=== PATIENT | male | born 1970 | race American Indian/Alaskan Native ===

== ENCOUNTER 2016-12-10 20:16 | Emergency (ER) | payer BC, MEDICAID ==
[2016-12-10] MEDS ORDERED: HYDROmorphone 1 MG/ML Syringe IVPUSH ONE ×2 (21:00→21:53)
[2016-12-10] MEDS ORDERED: Ondansetron 4 MG/2 ML SDV IV ONE (21:00)
[2016-12-10] MEDS ORDERED: HYDROmorphone 1 MG/ML Syringe ONE (21:18)
[2016-12-10] MEDS ORDERED: LORazepam 2 MG/ML Syringe IVPUSH ONE (21:45)
[2016-12-10 22:09] LABS: CHLORIDE,CL 102 mmol/L (101-111); SODIUM,NA 137 mmol/L (135-145)
[2016-12-10] MEDS ORDERED: fentaNYL 100 MCG/2 ML SDV IVPUSH ONE (22:26)
[2016-12-10 23:03] VITALS: BP 96/63
--- NOTE | 2016-12-26 05:55 | EDM.PDOC ---
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 Hx back problems different tonight with numbness to lower legs and cant feel area of groin. No incontinence. Has to strain to urinate. Onset: Today Duration: Hour(s):, Getting Worse Lower Back Pain Score (Numeric/FACES): 7 - Related Data Allergies Allergy/AdvReac Type Severity Reaction Status Date / Time codeine Allergy Rash Verified 12/17/16 09:19 Home Meds: Home Meds Cyclobenzaprine [Flexeril] 1 tab PO TID PRN 12/17/16 [History] Oxycod/Apap 12/17/16 [History] Past Medical History - Infectious Disease History Infectious Disease History: Reports: Chicken Pox, Measles, Mumps - Past Surgical History GI Surgical History: Reports: Cholecystectomy Neurological Surgical History: Reports: Discectomy Other Neurological Surgeries/Procedures: L4-L5 Musculoskeletal Surgical History: Reports: Shoulder Surgery, Other (See Below) Other Musculoskeletal Surgeries/Procedures:: l4-l5 Social & Family History - Tobacco Use Smoking Status *Q: Current Every Day Smoker Years of Tobacco use: 32 Packs/Tins Daily: 1 Second Hand Smoke Exposure: Yes - Recreational Drug Use Recreational Drug Use: No ED ROS GENERAL - Review of Systems Review Of Systems: See Below Constitutional: Denies: Fever, Chills HEENT: Reports: No Symptoms Respiratory: Reports: No Symptoms Cardiovascular: Reports: No Symptoms GI/Abdominal: Reports: Nausea : Reports: No Symptoms Musculoskeletal: Reports: Back Pain Skin: Reports: No Symptoms Neurological: Reports: Paresthesia, Difficulty Walking ED EXAM,LOWER BACK PAIN/INJURY - Physical Exam Exam: See Below General Appearance: Alert, Anxious, Severe Distress Eye Exam: Bilateral Eye: EOMI Ears: Normal External Exam Throat/Mouth: Normal Inspection Head: Atraumatic, Normocephalic Neck: Normal Inspection Respiratory/Chest: No Respiratory Distress, Lungs Clear Cardiovascular: Regular Rate, Rhythm, Tachycardia GI/Abdominal: Normal Bowel Sounds, Soft Rectal (Males) Exam: No: Decreased Rectal Tone Back Exam: Paraspinal Tenderness, Vertebral Tenderness, Other (decreased sensation right foot. saddle anesthesia, position of comfort position.) Extremities: Limited Range of Motion Neurological: Alert, No Response to Pain (decreased response bilateral ), Saddle Anesthesia. No: Normal Gait Psychiatric: Anxious Skin Exam: Warm, Dry, Intact, Normal Color Course - Vital Signs Last Recorded V/S: Last Vital Signs Temp 99.2 F 12/10/16 22:29 Pulse 113 H 12/10/16 23:00 Resp 18 12/10/16 22:29 BP 96/63 12/10/16 23:00 Pulse Ox 96 12/10/16 23:00 - Orders/Labs/Meds Labs: Laboratory Tests 12/10/16 12/10/16 12/10/16 Range/Units 20:52 20:52 22:47 WBC 18.1 H (5.0-10.0) 10^3/uL RBC 4.82 (4.6-6.2) 10^6/uL Hgb 15.2 (14.0-18.0) g/dL Hct 44.2 (40.0-54.0) % MCV 91.7 (80-100) fL MCH 31.5 (27.0-34.0) pg MCHC 34.4 (33.0-35.0) g/dL Plt Count 262 (150-450) 10^3/uL Neut % (Auto) 83.7 H (42.2-75.2) % Lymph % (Auto) 7.4 L (20.5-50.1) % [place] % (Auto) 8.4 H (2-8) % Eos % (Auto) 0.3 L (1.0-3.0) % Baso % (Auto) 0.2 (0.0-1.0) % Sodium 137 (135-145) mmol/L Potassium 3.5 L (3.6-5.0) mmol/L Chloride 102 (101-111) mmol/L Carbon Dioxide 19.0 L (21.0-31.0) mmol/L Anion Gap 19.5 BUN 15 (7-18) mg/dL Creatinine 1.1 (0.6-1.3) mg/dL Est Cr Clr Drug Dosing 79.45 mL/min Estimated GFR (MDRD) > 60 BUN/Creatinine Ratio 13.63 Glucose 88 (74-105) mg/dL Calcium 9.5 (8.4-10.2) mg/dl Total Bilirubin 0.9 (0.2-1.0) mg/dL AST 39 (10-42) IU/L ALT 46 (10-60) IU/L Alkaline Phosphatase 76 (42-121) IU/L Total Protein 8.4 H (6.7-8.2) g/dl Albumin 4.3 (3.2-5.5) g/dl Globulin 4.1 Albumin/Globulin Ratio 1.05 Urine Color Dark yellow (YELLOW) Urine Appearance Slightly cloudy (CLEAR) Urine pH 6.0 (5.0-9.0) Ur Specific [place] 1.020 (1.005-1.030) Urine Protein 30 H (NEGATIVE) Urine Glucose (UA) Negative (NEGATIVE) Urine Ketones Trace H (NEGATIVE) Urine Occult Blood Negative (NEGATIVE) Urine Nitrite Negative (NEGATIVE) Urine Bilirubin Small H (NEGATIVE) Urine Urobilinogen 2.0 H (0.2-1.0) mg/dL Ur Leukocyte Esterase Negative (NEGATIVE) Urine RBC 0-5 /HPF Urine WBC 0-5 (0-5/HPF) /HPF Ur Epithelial Cells Occasional /HPF Urine Bacteria Moderate H (0-FEW/HPF) /HPF Urine Mucus Many H /LPF Meds: Medications Discontinued Medications Generic Name Dose Route Start Last Admin Trade Name Gadiel PRN Reason Stop Dose Admin Diazepam 2.5 mg 12/10/16 22:41 12/10/16 22:56 Valium IVPUSH 12/10/16 22:42 2.5 mg ONETIME ONE Administration Fentanyl 25 mcg 12/10/16 22:26 12/10/16 22:55 Sublimaze IVPUSH 12/10/16 22:27 25 mcg ONETIME ONE Administration Hydromorphone HCl 1 mg 12/10/16 21:00 12/10/16 21:06 Dilaudid IVPUSH 12/10/16 21:01 1 mg ONETIME ONE Administration Hydromorphone HCl Confirm 12/10/16 21:18 12/10/16 21:20 Dilaudid Administered 12/10/16 21:19 1 mg Dose Administration 1 mg .ROUTE .STK-MED ONE Hydromorphone HCl 1 mg 12/10/16 21:53 12/10/16 21:55 Dilaudid IVPUSH 12/10/16 21:54 Not Given ONETIME ONE Lorazepam 1 mg 12/10/16 21:45 12/10/16 22:02 Ativan IVPUSH 12/10/16 21:46 1 mg ONETIME ONE Administration Ondansetron HCl 4 mg 12/10/16 21:00 12/10/16 21:08 Zofran IV 12/10/16 21:01 4 mg ONETIME ONE Administration - Radiology Interpretation Free Text/Narrative:: Lumbar CT no acute findings - Re-Assessments/Exams Free Text/Narrative Re-Assessment/Exam: 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 Tx via ambulance Departure - Departure Time of Disposition: 23:45 Disposition: DC/Tfer to Acute Hospital 02 Condition: Undetermined Clinical Impression: Lumbar radiculopathy, acute Acute low back pain Qualifiers: Back pain laterality: right Sciatica presence: with sciatica Sciatica laterality: sciatica of right side Qualified Code(s): M54.41 - Lumbago with sciatica, right side - Discharge Information Referrals: PCP,Unobtain [Primary Care Provider] - Forms: ED Department Discharge
== END 2016-12-10 23:45 ==
LOC: DL.ED 20:16
DX: M54.16 Radiculopathy, lumbar region (principal); M54.41 Lumbago with sciatica, right side; F17.210 Nicotine dependence, cigarettes, uncomplicated; Z88.5 Allergy status to narcotic agent; Z90.49 Acquired absence of other specified parts of digestive tract
CPT/HCPCS: 36415; 72131; 80053; 81001; 85025; 96374; 96375; 99284; J1170; J2060; J2405; J3010; J3360

== ENCOUNTER 2016-12-17 08:45 | Emergency (ER) | payer BC ==
--- NOTE | 2016-12-17 09:00 | EDM.PDOC ---
ED HPI GENERAL MEDICAL PROBLEM - General Chief Complaint: Back Pain or Injury Stated Complaint: BACK Time Seen by Provider: 12/17/16 09:00 Source of Information: Reports: Patient, RN History Limitations: Reports: No Limitations - History of Present Illness INITIAL COMMENTS - FREE TEXT/NARRATIVE: Arrives from home by POV with c/o low back pain radiating to the Rt groin and down the Rt leg. Pt was seen here on 12/10/16 and transferred to a neurosurgeon at [facility] after lifting and injuring his low back and having loss of sensation to the Rt leg with saddle numbness. Pt is scheduled to see the neurosurgeon in clinic on 12/26/16 for f/u. Today he went to clinic for recheck and refill of his pain medication, but he states they would not let him see Dr. Acuna and told him to go to the ER for his medicine. 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) Right Lower Back Pain Score (Numeric/FACES): 9 - Related Data Allergies Allergy/AdvReac Type Severity Reaction Status Date / Time codeine Allergy Rash Verified 12/17/16 09:19 Home Meds: Home Meds Oxycod/Apap 12/17/16 [History] Past Medical History - Infectious Disease History Infectious Disease History: Reports: Chicken Pox, Measles, Mumps - Past Surgical History GI Surgical History: Reports: Cholecystectomy Neurological Surgical History: Reports: Discectomy Other Neurological Surgeries/Procedures: L4-L5 Musculoskeletal Surgical History: Reports: Shoulder Surgery, Other (See Below) Other Musculoskeletal Surgeries/Procedures:: l4-l5 Social & Family History - Family History Family Medical History: Noncontributory - Tobacco Use Smoking Status *Q: Current Every Day Smoker Years of Tobacco use: 32 Packs/Tins Daily: 1 Second Hand Smoke Exposure: Yes - Recreational Drug Use Recreational Drug Use: No - Living Situation & Occupation Living situation: Reports: with Family ED ROS GENERAL - Review of Systems Review Of Systems: ROS reveals no pertinent complaints other than HPI. ED EXAM,LOWER BACK PAIN/INJURY - Physical Exam Exam: See Below Exam Limited By: No Limitations General Appearance: Alert, WD/WN, No Apparent Distress Head: Atraumatic, Normocephalic Neck: Normal Inspection, Supple, Non-Tender, Full Range of Motion Respiratory/Chest: No Respiratory Distress, Lungs Clear, Normal Breath Sounds, No Accessory Muscle Use, Chest Non-Tender Cardiovascular: Regular Rate, Rhythm GI/Abdominal: Normal Bowel Sounds, Soft, Non-Tender, No Organomegaly, No Distention, No Abnormal Bruit (Male) Exam: Deferred Rectal (Males) Exam: Deferred Back Exam: Decreased Range of Motion (lumbar), Muscle Spasm, Paraspinal Tenderness (lumbar). No: CVA Tenderness (L), CVA Tenderness (R), Vertebral Tenderness Extremities: Normal Inspection, Normal Range of Motion, Non-Tender, No Pedal Edema, Normal Capillary Refill Neurological: Alert, Normal Mood/Affect, Normal Dorsiflexion, CN II-XII Intact, Normal Plantar Flexion, No Motor/Sensory Deficits, Oriented x 3, Abnormal Gait ( antalgic gait due to back pain) Psychiatric: Normal Affect, Normal Mood Skin Exam: Warm, Dry, Intact, Normal Color, No Rash Course - Vital Signs Last Recorded V/S: Last Vital Signs Temp 36.8 C 12/17/16 08:53 Pulse 92 12/17/16 08:53 Resp 20 12/17/16 08:53 BP 145/88 H 12/17/16 08:53 Pulse Ox 100 12/17/16 08:53 - Orders/Labs/Meds Meds: Medications Discontinued Medications Generic Name Dose Route Start Last Admin Trade Name Gadiel PRN Reason Stop Dose Admin Dexamethasone 8 mg 12/17/16 09:14 Dexamethasone PO 12/17/16 09:15 ONETIME ONE Oxycodone/Acetaminophen 2 tab 12/17/16 09:15 Percocet 325-5 Mg PO 12/17/16 09:16 ONETIME ONE - Re-Assessments/Exams Free Text/Narrative Re-Assessment/Exam: 12/17/16 09:40 Reviewed D[place]C notes from [place] and [place] report from visit here on 12/10/16. Departure - Departure Time of Disposition: 09:17 Disposition: Home, Self-Care 01 Condition: Good Clinical Impression: Lumbar radiculopathy, acute Acute low back pain Qualifiers: Back pain laterality: right Sciatica presence: with sciatica Sciatica laterality: sciatica of right side Qualified Code(s): M54.41 - Lumbago with sciatica, right side - Discharge Information Instructions: Back Pain, Adult, [id number], Lumbosacral Radiculopathy Forms: ED Department Discharge Additional Instructions: Rx: Decadron (Dexamethasone) 4mg Rx: Gabapentin 300mg *Do not drive while under the influence of this medication. Follow up Saturday with Dr. Acuna for recheck, medication management, and a referral to neurosurgeon.
[2016-12-17] MEDS ORDERED: Dexamethasone 4 MG Tab PO ONE (09:14)
[2016-12-17] MEDS ORDERED: Acetaminophen/oxyCODONE 325-5 MG Tab PO ONE (09:15)
[2016-12-17 09:17] VITALS: BP 145/88
== END 2016-12-17 09:40 | disposition home or self-care (01) ==
LOC: DL.ED 08:45
DX: M54.16 Radiculopathy, lumbar region (principal); M54.41 Lumbago with sciatica, right side; F17.210 Nicotine dependence, cigarettes, uncomplicated; Z98.890 Other specified postprocedural states
CPT/HCPCS: 99282; A9270; J8540

== ENCOUNTER 2018-10-24 03:56 | Emergency (ER) | payer BC, MEDICAID ==
[2018-10-24 04:06] VITALS: BP 113/63; PULSE 84
[2018-10-24] MEDS ORDERED: Ketorolac 30 MG/ML SDV IVPUSH ONE (04:18)
--- NOTE | 2018-10-24 04:46 | EDM.PDOC ---
ED HPI GENERAL MEDICAL PROBLEM - General Chief Complaint: Back Pain or Injury Stated Complaint: AMBULANCE- BACK PAIN Time Seen by Provider: 10/24/18 04:05 Source of Information: Reports: Patient, EMS History Limitations: Reports: Other - History of Present Illness INITIAL COMMENTS - FREE TEXT/NARRATIVE: Jas via [facility] with c/o low back pain after "falling in hallway around 2. Stated he "was trying to sit down on his couch" Hx of back pain and previous L4L5 surgeries. Poor historian. C/O and hx inconsistent. Patient had told EMS that after he fell he got up and smoked some weed In ED denied drug or alcohol use. Able to get from hallway where fell to living room per self. Lower Back Pain Score (Numeric/FACES): 10 - Related Data Allergies Allergy/AdvReac Type Severity Reaction Status Date / Time codeine Allergy Rash Verified 12/17/16 09:19 Home Meds: Home Meds . [No Known Home Meds] 10/24/18 [History] Past Medical History Musculoskeletal History: Reports: Back Pain, Chronic - Infectious Disease History Infectious Disease History: Reports: Chicken Pox, Measles, Mumps - Past Surgical History GI Surgical History: Reports: Cholecystectomy Neurological Surgical History: Reports: Discectomy Other Neurological Surgeries/Procedures: L4-L5 Musculoskeletal Surgical History: Reports: Shoulder Surgery, Other (See Below) Other Musculoskeletal Surgeries/Procedures:: l4-l5 Social & Family History - Family History Family Medical History: Noncontributory - Tobacco Use Smoking Status *Q: Current Every Day Smoker Years of Tobacco use: 24 Packs/Tins Daily: 0.7 Used Tobacco, but Quit: No Second Hand Smoke Exposure: Yes - Caffeine Use Caffeine Use: Reports: Soda - Recreational Drug Use Recreational Drug Use: No - Living Situation & Occupation Living situation: Reports: with Family ED ROS GENERAL - Review of Systems Review Of Systems: ROS reveals no pertinent complaints other than HPI. ED EXAM,LOWER BACK PAIN/INJURY - Physical Exam Exam: See Below Exam Limited By: No Limitations General Appearance: Alert, Anxious Eye Exam: Bilateral Eye: EOMI, PERRL (5mm) Ears: Normal External Exam Throat/Mouth: Normal Inspection Head: Atraumatic, Normocephalic Respiratory/Chest: No Respiratory Distress, Lungs Clear, Normal Breath Sounds Cardiovascular: Normal Peripheral Pulses, Regular Rate, Rhythm GI/Abdominal: Normal Bowel Sounds Back Exam: Full Range of Motion, Paraspinal Tenderness (low lumbar) Extremities: Normal Inspection, Normal Range of Motion Neurological: Alert, Straight Leg Raise (R), Other (forgetful, frequent redirection, crawling out of bed, wandering in room, picking at lausndry and supplies on wall.). No: Saddle Anesthesia Psychiatric: Anxious Skin Exam: Warm, Dry, Intact, Normal Color Course - Vital Signs Last Recorded V/S: Last Vital Signs Temp 97.9 F 10/24/18 04:04 Pulse 84 10/24/18 04:04 Resp 20 10/24/18 04:04 BP 113/63 10/24/18 04:04 Pulse Ox 97 10/24/18 04:04 - Orders/Labs/Meds Orders: Active Orders 24 hr Category Date Time Status Head wo Cont [CT] Urgent Exams 10/24/18 05:13 Taken Lumbar Spine wo Cont [CT] Urgent Exams 10/24/18 05:14 Taken Labs: Laboratory Tests 10/24/18 10/24/18 10/24/18 Range/Units 04:30 04:30 05:08 WBC 7.3 (5.0-10.0) 10^3/uL RBC 4.76 (4.6-6.2) 10^6/uL Hgb 14.7 (14.0-18.0) g/dL Hct 42.6 (40.0-54.0) % MCV 89.5 (80-100) fL MCH 30.9 (27.0-34.0) pg MCHC 34.5 (33.0-35.0) g/dL Plt Count 255 (150-450) 10^3/uL Neut % (Auto) 48.0 (42.2-75.2) % Lymph % (Auto) 39.9 (20.5-50.1) % [place] % (Auto) 10.3 H (2-8) % Eos % (Auto) 1.4 (1.0-3.0) % Baso % (Auto) 0.4 (0.0-1.0) % Sodium 137 (135-145) mmol/L Potassium 4.1 (3.6-5.0) mmol/L Chloride 107 (101-111) mmol/L Carbon Dioxide 21.0 (21.0-31.0) mmol/L Anion Gap 13.1 BUN 14 (7-18) mg/dL Creatinine 0.9 (0.6-1.3) mg/dL Est Cr Clr Drug Dosing 95.00 mL/min Estimated GFR (MDRD) > 60 BUN/Creatinine Ratio 15.55 Glucose 88 (74-105) mg/dL Calcium 9.2 (8.4-10.2) mg/dl Total Bilirubin 0.8 (0.2-1.0) mg/dL AST 29 (10-42) IU/L ALT 33 (10-60) IU/L Alkaline Phosphatase 76 (42-121) IU/L Total Protein 7.7 (6.7-8.2) g/dl Albumin 4.0 (3.2-5.5) g/dl Globulin 3.7 Albumin/Globulin Ratio 1.08 Urine Color Yellow (YELLOW) Urine Appearance Clear (CLEAR) Urine pH 7.0 (5.0-9.0) Ur Specific [place] 1.010 (1.005-1.030) Urine Protein Negative (NEGATIVE) Urine Glucose (UA) Negative (NEGATIVE) Urine Ketones Negative (NEGATIVE) Urine Occult Blood Trace-intact H (NEGATIVE) Urine Nitrite Negative (NEGATIVE) Urine Bilirubin Negative (NEGATIVE) Urine Urobilinogen 4.0 H (0.2-1.0) mg/dL Ur Leukocyte Esterase Negative (NEGATIVE) Urine RBC 0-5 /HPF Urine WBC 0-5 (0-5/HPF) /HPF Ur Epithelial Cells Rare (NOT SEEN) /HPF Urine Bacteria Rare (0-FEW/HPF) /HPF Urine Opiates Screen (NEGATIVE) Ur Oxycodone Screen (NEGATIVE) Urine Methadone Screen (NEGATIVE) Ur Barbiturates Screen (NEGATIVE) U Tricyclic Antidepress (NEGATIVE) Ur Phencyclidine Scrn (NEGATIVE) Ur Amphetamine Screen (NEGATIVE) U Methamphetamines Scrn (NEGATIVE) Urine MDMA Screen (NEGATIVE) U Benzodiazepines Scrn (NEGATIVE) Urine Cocaine Screen (NEGATIVE) U Marijuana (THC) Screen (NEGATIVE) Ethyl Alcohol < 5 mg/dL 10/24/18 Range/Units 05:08 WBC (5.0-10.0) 10^3/uL RBC (4.6-6.2) 10^6/uL Hgb (14.0-18.0) g/dL Hct (40.0-54.0) % MCV (80-100) fL MCH (27.0-34.0) pg MCHC (33.0-35.0) g/dL Plt Count (150-450) 10^3/uL Neut % (Auto) (42.2-75.2) % Lymph % (Auto) (20.5-50.1) % [place] % (Auto) (2-8) % Eos % (Auto) (1.0-3.0) % Baso % (Auto) (0.0-1.0) % Sodium (135-145) mmol/L Potassium (3.6-5.0) mmol/L Chloride (101-111) mmol/L Carbon Dioxide (21.0-31.0) mmol/L Anion Gap BUN (7-18) mg/dL Creatinine (0.6-1.3) mg/dL Est Cr Clr Drug Dosing mL/min Estimated GFR (MDRD) BUN/Creatinine Ratio Glucose (74-105) mg/dL Calcium (8.4-10.2) mg/dl Total Bilirubin (0.2-1.0) mg/dL AST (10-42) IU/L ALT (10-60) IU/L Alkaline Phosphatase (42-121) IU/L Total Protein (6.7-8.2) g/dl Albumin (3.2-5.5) g/dl Globulin Albumin/Globulin Ratio Urine Color (YELLOW) Urine Appearance (CLEAR) Urine pH (5.0-9.0) Ur Specific [place] (1.005-1.030) Urine Protein (NEGATIVE) Urine Glucose (UA) (NEGATIVE) Urine Ketones (NEGATIVE) Urine Occult Blood (NEGATIVE) Urine Nitrite (NEGATIVE) Urine Bilirubin (NEGATIVE) Urine Urobilinogen (0.2-1.0) mg/dL Ur Leukocyte Esterase (NEGATIVE) Urine RBC /HPF Urine WBC (0-5/HPF) /HPF Ur Epithelial Cells (NOT SEEN) /HPF Urine Bacteria (0-FEW/HPF) /HPF Urine Opiates Screen Negative (NEGATIVE) Ur Oxycodone Screen Positive H (NEGATIVE) Urine Methadone Screen Negative (NEGATIVE) Ur Barbiturates Screen Negative (NEGATIVE) U Tricyclic Antidepress Negative (NEGATIVE) Ur Phencyclidine Scrn Negative (NEGATIVE) Ur Amphetamine Screen Positive H (NEGATIVE) U Methamphetamines Scrn Positive H (NEGATIVE) Urine MDMA Screen Negative (NEGATIVE) U Benzodiazepines Scrn Positive H (NEGATIVE) Urine Cocaine Screen Negative (NEGATIVE) U Marijuana (THC) Screen Positive H (NEGATIVE) Ethyl Alcohol mg/dL Meds: Medications Discontinued Medications Generic Name Dose Route Start Last Admin Trade Name Gadiel PRN Reason Stop Dose Admin Ketorolac Tromethamine 30 mg 10/24/18 04:18 10/24/18 04:25 Toradol IVPUSH 10/24/18 04:19 30 mg ONETIME ONE Administration Orphenadrine Citrate 60 mg 10/24/18 04:19 10/24/18 04:27 Norflex IM 10/24/18 04:20 60 mg ONETIME ONE Administration - Re-Assessments/Exams Free Text/Narrative Re-Assessment/Exam: Informed results of urine drug screen, first admitting and stating it had been 3 -4 days since use then that he was "exposed to chemicals at work" Departure - Departure Time of Disposition: 06:39 Disposition: Eloped 07 Condition: Good Clinical Impression: Positive urine drug screen Back pain Qualifiers: Back pain location: low back pain Chronicity: acute Back pain laterality: unspecified Sciatica presence: without sciatica Qualified Code(s): M54.5 - Low back pain - Discharge Information *PRESCRIPTION DRUG MONITORING PROGRAM REVIEWED*: Yes *COPY OF PRESCRIPTION DRUG MONITORING REPORT IN PATIENT [place]: No Instructions: Musculoskeletal Pain, Stimulant Use Disorder-Methamphetamines Forms: ED Department Discharge - My Orders Last 24 Hours: My Active Orders 10/24/18 05:13 Head wo Cont [CT] Urgent 10/24/18 05:14 Lumbar Spine wo Cont [CT] Urgent - Assessment/Plan Last 24 Hours: My Active Orders 10/24/18 05:13 Head wo Cont [CT] Urgent 10/24/18 05:14 Lumbar Spine wo Cont [CT] Urgent
[2018-10-24 04:53] LABS: ANION GAP 13.1; CHLORIDE,CL 107 mmol/L (101-111); SODIUM,NA 137 mmol/L (135-145)
== END 2018-10-24 06:30 | disposition left against medical advice (07) ==
LOC: DL.ED 03:56
DX: M54.5 Low back pain (principal); R82.5 Elevated urine levels of drugs, medicaments and biological substances; F17.210 Nicotine dependence, cigarettes, uncomplicated; Z90.49 Acquired absence of other specified parts of digestive tract
CPT/HCPCS: 36415; 70450; 72131; 80053; 80305; 81001; 85025; 96372; 96374; 99283; G0480; J1885; J2360

== ENCOUNTER 2020-01-16 11:15 | Emergency (ER) | payer MEDICAID ==
[2020-01-16] MEDS ORDERED: Iopamidol 612 MG/ML 100 ML Bottle IV ONE (11:16)
[2020-01-16 11:26] VITALS: BP 135/84; PULSE 100
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
[2020-01-16 12:09] LABS: ANION GAP 7.9 mEq/L (7-13); CHLORIDE,CL 98 mmol/L (98-107); SODIUM,NA 135 mmol/L (136-145)
--- NOTE | 2020-01-16 12:21 | CT ---
PROCEDURE INFORMATION: Exam: CT Lumbar Spine Without Contrast Exam date and time: 01/16/2020 11:46 AM Age: 50 years old Clinical indication: Low back pain; Prior surgery; Surgery date: 6+ months; Additional info: Lower right back pain, possible hematoma TECHNIQUE: Imaging protocol: Computed tomography images of the lumbar spine without contrast. Radiation optimization: All CT scans at this facility use at least one of these dose optimization techniques: automated exposure control; mA and/or kV adjustment per patient size (includes targeted exams where dose is matched to clinical indication); or iterative reconstruction. COMPARISON: CT Lumbar Spine wo Cont 10/24/2018 5:44 AM FINDINGS: Vertebrae: L3-S1 posterior fusion and decompression with intervening disc spacers. Intact hardware. No vertebral body compression. Normal vertebral body alignment. Discs/Spinal canal/Neural foramina: Degenerative disc space narrowing at L3-S1 levels. Moderate disc osteophyte complexes at L4-L5 and L5-S1. Bilateral neural foraminal narrowing at L5-S1. Facet arthrosis at L2-L3, L3-L4, L4-L5 and L5-S1. No spinal canal stenosis. Moderate bulge at L3-L4. Vasculature: Atherosclerosis. Soft tissues: Cholecystectomy. IMPRESSION: Intact hardware. Degenerative changes. No hematoma identified.
--- NOTE | 2020-01-16 12:24 | CT ---
PROCEDURE INFORMATION: Exam: CT Abdomen And Pelvis With Contrast Exam date and time: 01/16/2020 11:56 AM Age: 50 years old Clinical indication: Abdominal pain; Additional info: Lower right back pain, possible hematoma TECHNIQUE: Imaging protocol: Computed tomography of the abdomen and pelvis with intravenous contrast. Radiation optimization: All CT scans at this facility use at least one of these dose optimization techniques: automated exposure control; mA and/or kV adjustment per patient size (includes targeted exams where dose is matched to clinical indication); or iterative reconstruction. Contrast material: ISOVUE; Contrast volume: 100 ml; Contrast route: INTRAVENOUS (IV); COMPARISON: No relevant prior studies available. FINDINGS: Liver: Normal. No mass. Gallbladder and bile ducts: Cholecystectomy. Pancreas: Normal. No ductal dilation. Spleen: Normal. No splenomegaly. Adrenals: Normal. No mass. Kidneys and ureters: 6 mm nonobstructive left renal stone. Mild heterogeneity in the enhancement of the right renal cortex. Correlate with urinalysis to exclude pyelonephritis. 1 mm nonobstructive right renal stone. Stomach and bowel: Unremarkable. No obstruction. No mucosal thickening. Appendix: Unable to identify the appendix. Intraperitoneal space: Small amount of pelvic ascites. Vasculature: Atherosclerosis. Lymph nodes: Unremarkable. No enlarged lymph nodes. Bladder: Unremarkable as visualized. Reproductive: Unremarkable as visualized. Bones/joints: Lumbosacral fusion. Soft tissues: Unremarkable. IMPRESSION: 6 mm nonobstructive left renal stone. Mild heterogeneity in the enhancement of the right renal cortex. Correlate with urinalysis to exclude pyelonephritis. Small amount of pelvic ascites. 1 mm nonobstructive right renal stone.
== END 2020-01-16 12:13 | disposition left against medical advice (07) ==
LOC: DL.ED 11:15
DX: M54.5 Low back pain (principal); I10 Essential (primary) hypertension; F17.210 Nicotine dependence, cigarettes, uncomplicated; Z88.5 Allergy status to narcotic agent; Z88.8 Allergy status to other drugs, medicaments and biological substances; Z79.899 Other long term (current) drug therapy
CPT/HCPCS: 36415; 72131; 74177; 80053; 85025; 99284-25

== ENCOUNTER 2020-01-17 06:01 | Emergency (ER) | payer MEDICAID ==
[2020-01-17 06:01] VITALS: BP 180/124; PULSE 113
[2020-01-17] MEDS ORDERED: Tamsulosin 0.4 MG Cap.ER PO ONE (06:02)
[2020-01-17] MEDS ORDERED: Ketorolac 30 MG/ML SDV IM ONE (06:02)
[2020-01-17] MEDS ORDERED: Acetaminophen/HYDROcodone 325-5 MG Tab PO ONE (06:03)
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
[2020-01-17] MEDS ORDERED: Sodium Chloride 0.9% 10 ML Syringe FLUSH PRN (06:33)
[2020-01-17] MEDS ORDERED: Sodium Chloride 0.9% 1,000 ML IV ONE (06:34)
[2020-01-17] MEDS ORDERED: diphenhydrAMINE 50 MG/ML SDV IVPUSH ONE (07:06)
[2020-01-17 07:14] LABS: ANION GAP 13.3 mEq/L (7-13); CHLORIDE,CL 98 mmol/L (98-107); SODIUM,NA 133 mmol/L (136-145)
== END 2020-01-17 08:12 ==
LOC: DL.ED 06:01
DX: S70.11XA Contusion of right thigh, initial encounter (principal); S30.0XXA Contusion of lower back and pelvis, initial encounter; L02.212 Cutaneous abscess of back [any part, except buttock and flank]; N20.0 Calculus of kidney; I10 Essential (primary) hypertension; F17.210 Nicotine dependence, cigarettes, uncomplicated; Z88.5 Allergy status to narcotic agent; Z88.8 Allergy status to other drugs, medicaments and biological substances; Z79.899 Other long term (current) drug therapy; W22.8XXA Striking against or struck by other objects, initial encounter
CPT/HCPCS: 36415; 80053; 80305; 81001; 83605; 85025; 86140; 87040; 96361; 96365; 96372; 96375; 99285; A9270; J1200; J1885; J3370; J7030; J7050; 87077; 87186

== ENCOUNTER 2020-02-21 17:18 | Emergency (ER) | payer MEDICAID | END 2020-02-21 18:00 | LOC: DL.ED 17:18 | DX: Z53.21 Procedure and treatment not carried out due to patient leaving prior to being seen by health care provider (principal) ==

== ENCOUNTER 2020-02-22 00:43 | Emergency (ER) | payer MEDICAID ==
[2020-02-22 00:54] VITALS: BP 122/64; PULSE 106
[2020-02-22] MEDS ORDERED: HYDROmorphone 1 MG/ML Syringe IVPUSH ONE ×2 (01:17→02:29)
[2020-02-22] MEDS ORDERED: Ondansetron 4 MG/2 ML SDV IVPUSH ONE (01:17)
[2020-02-22 01:40] LABS: ANION GAP 15.5 mEq/L (7-13); CHLORIDE,CL 103 mmol/L (98-107); SODIUM,NA 141 mmol/L (136-145)
--- NOTE | 2020-02-22 01:42 | EDM.PDOC ---
ED HPI GENERAL MEDICAL PROBLEM - General Chief Complaint: Back Pain or Injury Stated Complaint: SEVERE BACK PAIN CAN'T FEEL LEGS Time Seen by Provider: 02/22/20 00:50 Source of Information: Reports: Patient History Limitations: Reports: No Limitations - History of Present Illness INITIAL COMMENTS - FREE TEXT/NARRATIVE: ED with c/o severe low back pain, Hx lumbar lisa and pins in 2014. Chronic pain since. States feel on to butt today and pain worse with numbness bilateral lower legs below knees. Difficulty with urination no incontinence. No stool incontinence. Admits narcotic Rx stopped by PCP due to positive meth. Admits last use 2 weeks ago. Denied IV use. No fever or chills. Took one hydro tonight around 6. Taking ibvuprofen 400mg every 4-6 hours. Lower Back Pain Score (Numeric/FACES): 10 - Related Data Allergies Allergy/AdvReac Type Severity Reaction Status Date / Time codeine Allergy Rash Verified 02/22/20 00:49 cyclobenzaprine Allergy Rash Verified 02/22/20 00:49 Home Meds: Home Meds lisinopriL [Lisinopril] 10 mg PO DAILY 01/16/20 [History] Past Medical History HEENT History: Reports: None Cardiovascular History: Reports: Hypertension Respiratory History: Reports: None Genitourinary History: Reports: None Musculoskeletal History: Reports: Back Pain, Chronic Neurological History: Reports: None Psychiatric History: Reports: None Endocrine/Metabolic History: Reports: None Hematologic History: Reports: None Immunologic History: Reports: None Oncologic (Cancer) History: Reports: None Dermatologic History: Reports: None - Infectious Disease History Infectious Disease History: Reports: None - Past Surgical History Head Surgeries/Procedures: Reports: None GI Surgical History: Reports: Cholecystectomy Neurological Surgical History: Reports: Discectomy Other Neurological Surgeries/Procedures: L4-L5 Musculoskeletal Surgical History: Reports: Shoulder Surgery, Other (See Below) Other Musculoskeletal Surgeries/Procedures:: l4-l5. States he has "rods and pins in back from ruptured disc" Social & Family History - Family History Family Medical History: Noncontributory - Tobacco Use Smoking Status *Q: Current Every Day Smoker Years of Tobacco use: 40 Packs/Tins Daily: 0.5 - Caffeine Use Caffeine Use: Reports: Soda - Recreational Drug Use Recreational Drug Use: No - Living Situation & Occupation Living situation: Reports: with Family ED ROS GENERAL - Review of Systems Review Of Systems: Comprehensive ROS is negative, except as noted in HPI. ED EXAM,LOWER BACK PAIN/INJURY - Physical Exam Exam: See Below Exam Limited By: No Limitations General Appearance: Alert, Moderate Distress Eye Exam: Bilateral Eye: EOMI Ears: Normal External Exam, Hearing Grossly Normal Nose: Normal Inspection Throat/Mouth: Normal Inspection Head: Atraumatic, Normocephalic Neck: Normal Inspection Respiratory/Chest: No Respiratory Distress, Lungs Clear, Normal Breath Sounds Cardiovascular: Normal Peripheral Pulses, Regular Rate, Rhythm GI/Abdominal: Normal Bowel Sounds, Soft Back Exam: Paraspinal Tenderness. No: Vertebral Tenderness Neurological: Extensor Response to Pain, Flexor Response to Pain, Abnormal Sensation (decreased below knees bilateral), Abn 2 Pt Discrimination, Straight Leg Raise (L), Straight Leg Raise (R). No: Tremor, Saddle Anesthesia Skin Exam: Warm, Dry, Intact, Normal Color, Other (track camara bilateral) Course - Vital Signs Last Recorded V/S: Last Vital Signs Temp 97.2 F 02/22/20 00:49 Pulse 106 H 02/22/20 00:49 Resp 16 02/22/20 00:49 BP 122/64 02/22/20 00:49 Pulse Ox 100 02/22/20 00:49 - Orders/Labs/Meds Labs: Laboratory Tests 02/22/20 02/22/20 02/22/20 Range/Units 01:07 01:07 01:13 WBC 11.4 H (5.0-10.0) 10^3/uL RBC 3.72 L (4.6-6.2) 10^6/uL Hgb 11.1 L (14.0-18.0) g/dL Hct 33.6 L (40.0-54.0) % MCV 90.3 (80-100) fL MCH 29.8 (27.0-34.0) pg MCHC 33.0 (33.0-35.0) g/dL Plt Count 447 D (150-450) 10^3/uL Neut % (Auto) 75.9 H (42.2-75.2) % Lymph % (Auto) 14.5 L (20.5-50.1) % Jewell % (Auto) 8.8 H (2-8) % Eos % (Auto) 0.5 L (1.0-3.0) % Baso % (Auto) 0.3 (0.0-1.0) % Sodium (136-145) mmol/L Potassium (3.5-5.1) mmol/L Chloride (98-107) mmol/L Carbon Dioxide (21-32) mmol/L Anion Gap (7-13) mEq/L BUN (7-18) mg/dL Creatinine (0.70-1.30) mg/dL Est Cr Clr Drug Dosing mL/min Estimated GFR (MDRD) BUN/Creatinine Ratio (No establ ref range) Glucose (74-99) mg/dL Calcium (8.5-10.1) mg/dL Total Bilirubin (0.2-1.0) mg/dL AST (15-37) U/L ALT (16-63) U/L Alkaline Phosphatase (46-116) U/L C-Reactive Protein (0.0-0.9) mg/dL Total Protein (6.4-8.2) g/dL Albumin (3.4-5.0) g/dL Globulin Albumin/Globulin Ratio Urine Color Yellow (YELLOW) Urine Appearance Clear (CLEAR) Urine pH 7.0 (5.0-9.0) Ur Specific Braham 1.025 (1.005-1.030) Urine Protein Negative (NEGATIVE) Urine Glucose (UA) Negative (NEGATIVE) Urine Ketones Negative (NEGATIVE) Urine Occult Blood Negative (NEGATIVE) Urine Nitrite Negative (NEGATIVE) Urine Bilirubin Negative (NEGATIVE) Urine Urobilinogen 0.2 (0.2-1.0) mg/dL Ur Leukocyte Esterase Negative (NEGATIVE) Urine Opiates Screen Positive H (NEGATIVE) Ur Oxycodone Screen Positive H (NEGATIVE) Urine Methadone Screen Negative (NEGATIVE) Ur Barbiturates Screen Negative (NEGATIVE) U Tricyclic Antidepress Negative (NEGATIVE) Ur Phencyclidine Scrn Negative (NEGATIVE) Ur Amphetamine Screen Positive H (NEGATIVE) U Methamphetamines Scrn Positive H (NEGATIVE) Urine MDMA Screen Negative (NEGATIVE) U Benzodiazepines Scrn Negative (NEGATIVE) Urine Cocaine Screen Negative (NEGATIVE) U Marijuana (THC) Screen Positive H (NEGATIVE) 02/22/20 Range/Units 01:13 WBC (5.0-10.0) 10^3/uL RBC (4.6-6.2) 10^6/uL Hgb (14.0-18.0) g/dL Hct (40.0-54.0) % MCV (80-100) fL MCH (27.0-34.0) pg MCHC (33.0-35.0) g/dL Plt Count (150-450) 10^3/uL Neut % (Auto) (42.2-75.2) % Lymph % (Auto) (20.5-50.1) % Jewell % (Auto) (2-8) % Eos % (Auto) (1.0-3.0) % Baso % (Auto) (0.0-1.0) % Sodium 141 (136-145) mmol/L Potassium 3.5 (3.5-5.1) mmol/L Chloride 103 (98-107) mmol/L Carbon Dioxide 26 (21-32) mmol/L Anion Gap 15.5 H (7-13) mEq/L BUN 17 (7-18) mg/dL Creatinine 0.87 (0.70-1.30) mg/dL Est Cr Clr Drug Dosing 96.09 mL/min Estimated GFR (MDRD) > 60 BUN/Creatinine Ratio 19.5 (No establ ref range) Glucose 119 H (74-99) mg/dL Calcium 9.0 (8.5-10.1) mg/dL Total Bilirubin 0.2 (0.2-1.0) mg/dL AST 23 (15-37) U/L ALT 44 (16-63) U/L Alkaline Phosphatase 146 H (46-116) U/L C-Reactive Protein 8.1 H (0.0-0.9) mg/dL Total Protein 8.9 H (6.4-8.2) g/dL Albumin 2.8 L (3.4-5.0) g/dL Globulin 6.1 Albumin/Globulin Ratio 0.46 Urine Color (YELLOW) Urine Appearance (CLEAR) Urine pH (5.0-9.0) Ur Specific Braham (1.005-1.030) Urine Protein (NEGATIVE) Urine Glucose (UA) (NEGATIVE) Urine Ketones (NEGATIVE) Urine Occult Blood (NEGATIVE) Urine Nitrite (NEGATIVE) Urine Bilirubin (NEGATIVE) Urine Urobilinogen (0.2-1.0) mg/dL Ur Leukocyte Esterase (NEGATIVE) Urine Opiates Screen (NEGATIVE) Ur Oxycodone Screen (NEGATIVE) Urine Methadone Screen (NEGATIVE) Ur Barbiturates Screen (NEGATIVE) U Tricyclic Antidepress (NEGATIVE) Ur Phencyclidine Scrn (NEGATIVE) Ur Amphetamine Screen (NEGATIVE) U Methamphetamines Scrn (NEGATIVE) Urine MDMA Screen (NEGATIVE) U Benzodiazepines Scrn (NEGATIVE) Urine Cocaine Screen (NEGATIVE) U Marijuana (THC) Screen (NEGATIVE) Meds: Medications Discontinued Medications Generic Name Dose Route Start Last Admin Trade Name Freq PRN Reason Stop Dose Admin Hydromorphone HCl 1 mg 02/22/20 01:17 02/22/20 01:22 Dilaudid IVPUSH 02/22/20 01:18 1 mg ONETIME ONE Administration Hydromorphone HCl 1 mg 02/22/20 02:29 02/22/20 02:58 Dilaudid IVPUSH 02/22/20 02:30 1 mg ONETIME ONE Administration Lorazepam 1 mg 02/22/20 01:56 02/22/20 02:01 Ativan IVPUSH 02/22/20 01:57 1 mg ONETIME ONE Administration Methylprednisolone Sodium Succinate 125 mg 02/22/20 04:02 02/22/20 04:06 Solu-Medrol IVPUSH 02/22/20 04:03 125 mg ONETIME ONE Administration Ondansetron HCl 4 mg 02/22/20 01:17 02/22/20 01:23 Zofran IVPUSH 02/22/20 01:18 4 mg ONETIME ONE Administration - Re-Assessments/Exams Free Text/Narrative Re-Assessment/Exam: 02/22/20 04:23 TC Neurosurgery. No acute Neurosurgical concerns on CT. Altered sensation in extremity not dermatome related. Intermittent sleep and periods of moaining. CT results reviewed with patient. Instructed to follow with PCP and Neurosurgeon this week Departure - Departure Time of Disposition: 04:25 Disposition: Home, Self-Care 01 Condition: Good Clinical Impression: Lumbar radiculopathy, acute, Positive urine drug screen Acute low back pain Qualifiers: Back pain laterality: right Sciatica presence: with sciatica Sciatica laterality: sciatica of right side Qualified Code(s): M54.41 - Lumbago with sciatica, right side - Discharge Information *PRESCRIPTION DRUG MONITORING PROGRAM REVIEWED*: Yes *COPY OF PRESCRIPTION DRUG MONITORING REPORT IN PATIENT IRINA: Yes Instructions: What You Need to Know About Chronic Back Pain Forms: ED Department Discharge Additional Instructions: Stop using meth increase fluids today follow up with primary care follow up with neurosurgeon in [place] ibuprofen 600mg alternate with tylenol 650mg every 4 hours as needed heat to low back Sepsis Event Note (ED) - Evaluation Sepsis Screening Result: No Definite Risk - Focused Exam Vital Signs: Vital Signs Temp Pulse Resp BP Pulse Ox 02/22/20 00:49 97.2 F 106 H 16 122/64 100
[2020-02-22] MEDS ORDERED: LORazepam 2 MG/ML SDV IVPUSH ONE (01:56)
--- NOTE | 2020-02-22 02:33 | CT ---
PROCEDURE INFORMATION: Exam: CT Lumbar Spine Without Contrast Exam date and time: 02/22/2020 1:34 AM Age: 50 years old Clinical indication: Other: Fall; Additional info: Severe back pain, numbness lower extremitiies TECHNIQUE: Imaging protocol: Computed tomography images of the lumbar spine without contrast. Radiation optimization: All CT scans at this facility use at least one of these dose optimization techniques: automated exposure control; mA and/or kV adjustment per patient size (includes targeted exams where dose is matched to clinical indication); or iterative reconstruction. COMPARISON: CT Lumbar Spine wo Cont 01/16/2020 11:46 AM FINDINGS: Vertebrae: Status post bilateral laminectomy from L3 through L5 with posterior lumbar fusion from L3 through the sacrum. Diffuse lumbar spondylosis changes noted. No acute fracture or dislocation. Discs/Spinal canal/Neural foramina: No significant disc protrusion. No severe spinal canal stenosis. No significant neural foraminal narrowing. Soft tissues: Unremarkable. IMPRESSION: 1. Postoperative changes involving the lumbar spine as discussed above. There is no acute fracture or dislocation. 2. No evidence for disc herniation or significant canal stenosis.
--- NOTE | 2020-02-22 02:35 | CT ---
PROCEDURE INFORMATION: Exam: CT Thoracic Spine Without Contrast Exam date and time: 02/22/2020 1:34 AM Age: 50 years old Clinical indication: Other: Fall; Additional info: Severe back pain, numbness lower extremitiies TECHNIQUE: Imaging protocol: Computed tomography images of the thoracic spine without contrast. Radiation optimization: All CT scans at this facility use at least one of these dose optimization techniques: automated exposure control; mA and/or kV adjustment per patient size (includes targeted exams where dose is matched to clinical indication); or iterative reconstruction. COMPARISON: No relevant prior studies available. FINDINGS: Vertebrae: There is no acute fracture or dislocation. Discs/Spinal canal/Neural foramina: The thoracic spine demonstrates moderate degenerative changes at multiple levels. There is mild anterior wedging in the midthoracic spine predominantly at T7-T8 with mild kyphotic deformity. There is a small partially calcified central disc herniation noted T5-T6 with mild thecal sac compression but no significant cord compression Soft tissues: Unremarkable. IMPRESSION: 1. [id number] cervical spondylosis changes noted with a mild kyphotic deformity. 2. No acute fracture dislocation or subluxation
[2020-02-22] MEDS ORDERED: Albuterol 6.7 GM Inhaler INH ONE (03:08)
[2020-02-22] MEDS ORDERED: methylPREDNISolone Sodium Succinate 125 MG/2 ML SDV IVPUSH ONE (04:02)
== END 2020-02-22 04:35 | disposition home or self-care (01) ==
LOC: DL.ED 00:43
DX: M54.41 Lumbago with sciatica, right side (principal); M54.16 Radiculopathy, lumbar region; R82.79 Other abnormal findings on microbiological examination of urine; I10 Essential (primary) hypertension; F17.210 Nicotine dependence, cigarettes, uncomplicated; Z88.5 Allergy status to narcotic agent; Z88.8 Allergy status to other drugs, medicaments and biological substances; Z79.899 Other long term (current) drug therapy
CPT/HCPCS: 36415; 72128; 72131; 80053; 80305; 81003; 85025; 86140; 96374; 96375; 96376; 99283; 99284; J1170; J2060; J2405; J2930

== ENCOUNTER 2020-06-07 09:30 | Emergency (ER) | payer MEDICAID ==
[2020-06-07] MEDS ORDERED: Sodium Chloride 0.9% 1,000 ML IV ONE (09:57)
--- NOTE | 2020-06-07 10:03 | CT ---
PROCEDURE INFORMATION: Exam: CT Head Without Contrast Exam date and time: 06/07/2020 9:43 AM Age: 50 years old Clinical indication: Altered mental status/memory loss; Confusion or disorientation; Additional info: Altered mentation TECHNIQUE: Imaging protocol: Computed tomography of the head without contrast. Radiation optimization: All CT scans at this facility use at least one of these dose optimization techniques: automated exposure control; mA and/or kV adjustment per patient size (includes targeted exams where dose is matched to clinical indication); or iterative reconstruction. Other technique: STROKE PROTOCOL was implemented. COMPARISON: CT Head wo Cont 10/24/2018 5:44 AM FINDINGS: Brain: No intracranial hemorrhage. There is preservation of cerebral sulci. There is periventricular white matter low attenuation which could be due to transependymal flow of cerebrospinal fluid. Cerebral ventricles: There is been development of dilatation of the lateral and 3rd ventricles. The 4th ventricle may be enlarged compared to the prior exam as well. The aqueduct of Sylvius is prominent. Bones/joints: No calvarial fracture. Paranasal sinuses: The visualized paranasal sinuses are aerated. Mastoid air cells: The right mastoid air cells appear aerated. There are mild inferior left mastoid air cell effusions. Soft tissues: No acute soft tissue abnormality. IMPRESSION: Interval development of communicating hydrocephalus. Consider MRI. ASSESSMENT: ASPECTS (Karlie Stroke Program Early CT Score) is 10.
[2020-06-07] MEDS ORDERED: Acetaminophen 650 MG Supp ONE (10:07)
[2020-06-07 10:24] LABS: ANION GAP 11.5 mEq/L (7-13); CHLORIDE,CL 94 mmol/L (98-107); SODIUM,NA 135 mmol/L (136-145)
--- NOTE | 2020-06-07 10:25 | EDM.PDOC ---
ED HPI GENERAL MEDICAL PROBLEM - General Stated Complaint: AMBULANCE Time Seen by Provider: 06/07/20 09:40 Source of Information: Reports: EMS History Limitations: Reports: Altered Mental Status - History of Present Illness INITIAL COMMENTS - FREE TEXT/NARRATIVE: This 50 yo male patient was brought to the ED by [facility] due to altered mentation. EMS reports they were called by the family due to the patient not responding to them appropriately. EMS reports the patient does have a history of drug use, but no known recent use. The patient was given 2 doses of nasal Narcan by ems with no changes. The patient did remove an IV placed by EMS. Examination revealed that the patient was not responding verbally, but did respond to painful stimuli. Onset: Unknown/Unsure Duration: Constant Location: Reports: Generalized Quality: Reports: Other Severity: Severe Improves with: Reports: None Worsens with: Reports: None Context: Reports: Other Associated Symptoms: Reports: No Other Symptoms - Related Data Allergies Allergy/AdvReac Type Severity Reaction Status Date / Time codeine Allergy Rash Verified 02/22/20 00:49 cyclobenzaprine Allergy Rash Verified 02/22/20 00:49 Home Meds: Home Meds lisinopriL [Lisinopril] 10 mg PO DAILY 01/16/20 [History] Past Medical History HEENT History: Reports: None Cardiovascular History: Reports: Hypertension Respiratory History: Reports: None Genitourinary History: Reports: None Musculoskeletal History: Reports: Back Pain, Chronic Neurological History: Reports: None Psychiatric History: Reports: None Endocrine/Metabolic History: Reports: None Hematologic History: Reports: None Immunologic History: Reports: None Oncologic (Cancer) History: Reports: None Dermatologic History: Reports: None - Infectious Disease History Infectious Disease History: Reports: None - Past Surgical History Head Surgeries/Procedures: Reports: None GI Surgical History: Reports: Cholecystectomy Neurological Surgical History: Reports: Discectomy Other Neurological Surgeries/Procedures: L4-L5 Musculoskeletal Surgical History: Reports: Shoulder Surgery, Other (See Below) Other Musculoskeletal Surgeries/Procedures:: l4-l5. States he has "rods and pins in back from ruptured disc" Social & Family History - Family History Family Medical History: No Pertinent Family History - Caffeine Use Caffeine Use: Reports: Soda - Living Situation & Occupation Living situation: Reports: with Family ED ROS GENERAL - Review of Systems Review Of Systems: Comprehensive ROS is negative, except as noted in HPI. ED EXAM, NEURO - Physical Exam Exam: See Below Exam Limited By: Altered Mental Status General Appearance: Obtunded, Severe Distress Eye Exam: Bilateral Eye: Other (Pupils were fixed at 3 mm) Ears: Normal External Exam, Normal Canal, Hearing Grossly Normal, Normal TMs Nose: Normal Inspection, Normal Mucosa, No Blood Throat/Mouth: Normal Inspection, Normal Lips, Normal Teeth, Normal Gums, Normal Oropharynx, Normal Voice, No Airway Compromise, Other (dry) Head Exam: Atraumatic, Normocephalic Neck: Normal Inspection, Full Range of Motion Respiratory/Chest: No Respiratory Distress, Lungs Clear Cardiovascular: Tachycardia GI/Abdominal: Soft, Non-Tender, No Organomegaly, No Distention, No Abnormal Bruit, No Mass (Male) Exam: Deferred Rectal (Males) Exam: Normal Rectal Tone Neurological: Withdraws to Pain, Abnormal Motor Back Exam: Normal Inspection, Full Range of Motion Extremities: Normal Inspection, Normal Capillary Refill Skin Exam: Increased Warmth Course - Vital Signs Last Recorded V/S: Last Vital Signs Temp 38.5 C H 06/07/20 10:30 Pulse 124 H 06/07/20 10:00 Resp 32 H 06/07/20 10:00 BP 197/101 H 06/07/20 10:00 Pulse Ox - Orders/Labs/Meds Orders: Active Orders 24 hr Category Date Time Status Blood Glucose Check, Bedside [RC] ONETIME Care 06/07/20 09:52 Active EKG Documentation Completion [RC] STAT Care 06/07/20 09:33 Active CULTURE BLOOD [BC] Stat Lab 06/07/20 09:53 Received CULTURE URINE [RM] Stat Lab 06/07/20 09:57 Received Piperacillin/Tazobactam [Zosyn] 3.375 gm Med 06/07/20 10:56 Active Sodium Chloride 0.9% [Normal Saline] 100 ml IV ONETIME Vancomycin 1 gm Med 06/07/20 10:56 Active Sodium Chloride 0.9% [Normal Saline (AdvBag)] 250 ml IV ONETIME Medication Orders Piperacillin Sod/Tazobactam (Sod 3.375 gm/ Sodium Chloride) 100 mls @ 200 mls/h r IV ONETIME ONE Stop: 06/07/20 11:25 Last Admin: 06/07/20 11:10 Dose: 200 mls/hr Documented by: NAHID Vancomycin HCl 1 gm/ Sodium (Chloride) 250 mls @ 167 mls/hr IV ONETIME ONE Stop: 06/07/20 12:25 Last Admin: 06/07/20 11:09 Dose: 167 mls/hr Documented by: NAHID Labs: Laboratory Tests 06/07/20 06/07/20 06/07/20 Range/Units 09:53 09:53 09:53 WBC 30.5 H* (5.0-10.0) 10^3/uL RBC 4.46 L (4.6-6.2) 10^6/uL Hgb 12.5 L (14.0-18.0) g/dL Hct 37.8 L (40.0-54.0) % MCV 84.8 D (80-100) fL MCH 28.0 (27.0-34.0) pg MCHC 33.1 (33.0-35.0) g/dL Plt Count 739 H D (150-450) 10^3/uL Neut % (Auto) 92.0 H (42.2-75.2) % Lymph % (Auto) 2.7 L (20.5-50.1) % [place] % (Auto) 5.2 (2-8) % Eos % (Auto) 0.0 L (1.0-3.0) % Baso % (Auto) 0.1 (0.0-1.0) % Add Manual Diff Yes Neutrophils % (Manual) 91 H (42-75) % Lymphocytes % (Manual) 4 L (20-50) % Monocytes % (Manual) 5 (2-8) % Sodium 135 L (136-145) mmol/L Potassium 3.5 (3.5-5.1) mmol/L Chloride 94 L (98-107) mmol/L Carbon Dioxide 33 H (21-32) mmol/L Anion Gap 11.5 (7-13) mEq/L BUN 16 (7-18) mg/dL Creatinine 1.08 (0.70-1.30) mg/dL Est Cr Clr Drug Dosing TNP Estimated GFR (MDRD) > 60 BUN/Creatinine Ratio 14.8 (No establ ref range) Glucose 127 H (74-99) mg/dL Lactic Acid 1.2 (0.4-2.0) mmol/L Calcium 10.0 (8.5-10.1) mg/dL Magnesium 1.8 (1.8-2.4) mg/dL Total Bilirubin 0.4 (0.2-1.0) mg/dL AST 18 (15-37) U/L ALT 31 (16-63) U/L Alkaline Phosphatase 97 (46-116) U/L Troponin I 0.041 (0.000-0.056) ng/mL Total Protein 9.8 H (6.4-8.2) g/dL Albumin 3.5 (3.4-5.0) g/dL Globulin 6.3 Albumin/Globulin Ratio 0.6 Urine Color (YELLOW) Urine Appearance (CLEAR) Urine pH (5.0-9.0) Ur Specific [place] (1.005-1.030) Urine Protein (NEGATIVE) Urine Glucose (UA) (NEGATIVE) Urine Ketones (NEGATIVE) Urine Occult Blood (NEGATIVE) Urine Nitrite (NEGATIVE) Urine Bilirubin (NEGATIVE) Urine Urobilinogen (0.2-1.0) mg/dL Ur Leukocyte Esterase (NEGATIVE) Urine RBC /HPF Urine WBC (0-5/HPF) /HPF Ur Epithelial Cells (NOT SEEN) /HPF Urine Bacteria (0-FEW/HPF) /HPF Salicylates (2.8-20(Therapeutic)) mg/dL Urine Opiates Screen (NEGATIVE) Ur Oxycodone Screen (NEGATIVE) Urine Methadone Screen (NEGATIVE) Acetaminophen 0 L (10-30 (Therapeutic)) ug/mL Ur Barbiturates Screen (NEGATIVE) U Tricyclic Antidepress (NEGATIVE) Ur Phencyclidine Scrn (NEGATIVE) Ur Amphetamine Screen (NEGATIVE) U Methamphetamines Scrn (NEGATIVE) Urine MDMA Screen (NEGATIVE) U Benzodiazepines Scrn (NEGATIVE) Urine Cocaine Screen (NEGATIVE) U Marijuana (THC) Screen (NEGATIVE) Ethyl Alcohol < 3 (0) mg/dL Influenza Type A RNA (NEGATIVE) Influenza Type B RNA (NEGATIVE) SARS-CoV-2 RNA (JIMMY) (NEGATIVE) 06/07/20 06/07/20 06/07/20 Range/Units 09:53 09:57 09:57 WBC (5.0-10.0) 10^3/uL RBC (4.6-6.2) 10^6/uL Hgb (14.0-18.0) g/dL Hct (40.0-54.0) % MCV (80-100) fL MCH (27.0-34.0) pg MCHC (33.0-35.0) g/dL Plt Count (150-450) 10^3/uL Neut % (Auto) (42.2-75.2) % Lymph % (Auto) (20.5-50.1) % [place] % (Auto) (2-8) % Eos % (Auto) (1.0-3.0) % Baso % (Auto) (0.0-1.0) % Add Manual Diff Neutrophils % (Manual) (42-75) % Lymphocytes % (Manual) (20-50) % Monocytes % (Manual) (2-8) % Sodium (136-145) mmol/L Potassium (3.5-5.1) mmol/L Chloride (98-107) mmol/L Carbon Dioxide (21-32) mmol/L Anion Gap (7-13) mEq/L BUN (7-18) mg/dL Creatinine (0.70-1.30) mg/dL Est Cr Clr Drug Dosing Estimated GFR (MDRD) BUN/Creatinine Ratio (No establ ref range) Glucose (74-99) mg/dL Lactic Acid (0.4-2.0) mmol/L Calcium (8.5-10.1) mg/dL Magnesium (1.8-2.4) mg/dL Total Bilirubin (0.2-1.0) mg/dL AST (15-37) U/L ALT (16-63) U/L Alkaline Phosphatase (46-116) U/L Troponin I (0.000-0.056) ng/mL Total Protein (6.4-8.2) g/dL Albumin (3.4-5.0) g/dL Globulin Albumin/Globulin Ratio Urine Color Yellow (YELLOW) Urine Appearance Slightly cloudy (CLEAR) Urine pH 7.0 (5.0-9.0) Ur Specific [place] 1.025 (1.005-1.030) Urine Protein 100 H (NEGATIVE) Urine Glucose (UA) 250 H (NEGATIVE) Urine Ketones Negative (NEGATIVE) Urine Occult Blood Small H (NEGATIVE) Urine Nitrite Positive H (NEGATIVE) Urine Bilirubin Negative (NEGATIVE) Urine Urobilinogen 0.2 (0.2-1.0) mg/dL Ur Leukocyte Esterase Small H (NEGATIVE) Urine RBC 10-20 H /HPF Urine WBC >100 H (0-5/HPF) /HPF Ur Epithelial Cells Rare (NOT SEEN) /HPF Urine Bacteria Moderate H (0-FEW/HPF) /HPF Salicylates < 2.8 L (2.8-20(Therapeutic)) mg/dL Urine Opiates Screen Negative (NEGATIVE) Ur Oxycodone Screen Positive H (NEGATIVE) Urine Methadone Screen Negative (NEGATIVE) Acetaminophen (10-30 (Therapeutic)) ug/mL Ur Barbiturates Screen Negative (NEGATIVE) U Tricyclic Antidepress Negative (NEGATIVE) Ur Phencyclidine Scrn Negative (NEGATIVE) Ur Amphetamine Screen Positive H (NEGATIVE) U Methamphetamines Scrn Positive H (NEGATIVE) Urine MDMA Screen Negative (NEGATIVE) U Benzodiazepines Scrn Negative (NEGATIVE) Urine Cocaine Screen Negative (NEGATIVE) U Marijuana (THC) Screen Positive H (NEGATIVE) Ethyl Alcohol (0) mg/dL Influenza Type A RNA (NEGATIVE) Influenza Type B RNA (NEGATIVE) SARS-CoV-2 RNA (JIMMY) (NEGATIVE) 06/07/20 Range/Units 10:05 WBC (5.0-10.0) 10^3/uL RBC (4.6-6.2) 10^6/uL Hgb (14.0-18.0) g/dL Hct (40.0-54.0) % MCV (80-100) fL MCH (27.0-34.0) pg MCHC (33.0-35.0) g/dL Plt Count (150-450) 10^3/uL Neut % (Auto) (42.2-75.2) % Lymph % (Auto) (20.5-50.1) % [place] % (Auto) (2-8) % Eos % (Auto) (1.0-3.0) % Baso % (Auto) (0.0-1.0) % Add Manual Diff Neutrophils % (Manual) (42-75) % Lymphocytes % (Manual) (20-50) % Monocytes % (Manual) (2-8) % Sodium (136-145) mmol/L Potassium (3.5-5.1) mmol/L Chloride (98-107) mmol/L Carbon Dioxide (21-32) mmol/L Anion Gap (7-13) mEq/L BUN (7-18) mg/dL Creatinine (0.70-1.30) mg/dL Est Cr Clr Drug Dosing Estimated GFR (MDRD) BUN/Creatinine Ratio (No establ ref range) Glucose (74-99) mg/dL Lactic Acid (0.4-2.0) mmol/L Calcium (8.5-10.1) mg/dL Magnesium (1.8-2.4) mg/dL Total Bilirubin (0.2-1.0) mg/dL AST (15-37) U/L ALT (16-63) U/L Alkaline Phosphatase (46-116) U/L Troponin I (0.000-0.056) ng/mL Total Protein (6.4-8.2) g/dL Albumin (3.4-5.0) g/dL Globulin Albumin/Globulin Ratio Urine Color (YELLOW) Urine Appearance (CLEAR) Urine pH (5.0-9.0) Ur Specific [place] (1.005-1.030) Urine Protein (NEGATIVE) Urine Glucose (UA) (NEGATIVE) Urine Ketones (NEGATIVE) Urine Occult Blood (NEGATIVE) Urine Nitrite (NEGATIVE) Urine Bilirubin (NEGATIVE) Urine Urobilinogen (0.2-1.0) mg/dL Ur Leukocyte Esterase (NEGATIVE) Urine RBC /HPF Urine WBC (0-5/HPF) /HPF Ur Epithelial Cells (NOT SEEN) /HPF Urine Bacteria (0-FEW/HPF) /HPF Salicylates (2.8-20(Therapeutic)) mg/dL Urine Opiates Screen (NEGATIVE) Ur Oxycodone Screen (NEGATIVE) Urine Methadone Screen (NEGATIVE) Acetaminophen (10-30 (Therapeutic)) ug/mL Ur Barbiturates Screen (NEGATIVE) U Tricyclic Antidepress (NEGATIVE) Ur Phencyclidine Scrn (NEGATIVE) Ur Amphetamine Screen (NEGATIVE) U Methamphetamines Scrn (NEGATIVE) Urine MDMA Screen (NEGATIVE) U Benzodiazepines Scrn (NEGATIVE) Urine Cocaine Screen (NEGATIVE) U Marijuana (THC) Screen (NEGATIVE) Ethyl Alcohol (0) mg/dL Influenza Type A RNA Negative (NEGATIVE) Influenza Type B RNA Negative (NEGATIVE) SARS-CoV-2 RNA (JIMMY) Negative (NEGATIVE) Meds: Medications Generic Name Dose Route Start Last Admin Trade Name Freq PRN Reason Stop Dose Admin Piperacillin Sod/Tazobactam 100 mls @ 200 mls/hr 06/07/20 10:56 06/07/20 11:10 Sod 3.375 gm/ Sodium Chloride IV 06/07/20 11:25 200 mls/hr ONETIME ONE Administration Vancomycin HCl 1 gm/ Sodium 250 mls @ 167 mls/hr 06/07/20 10:56 06/07/20 11:09 Chloride IV 06/07/20 12:25 167 mls/hr ONETIME ONE Administration Discontinued Medications Generic Name Dose Route Start Last Admin Trade Name Gadiel PRN Reason Stop Dose Admin Acetaminophen Confirm 06/07/20 10:07 06/07/20 11:08 Tylenol Administered 06/07/20 10:08 Not Given Dose 650 mg .ROUTE .STK-MED ONE Acetaminophen 650 mg 06/07/20 10:36 06/07/20 10:30 Tylenol RECTAL 06/07/20 10:37 650 mg NOW STA Administration Sodium Chloride 1,000 mls @ 999 mls/hr 06/07/20 09:57 06/07/20 10:07 Normal Saline IV 06/07/20 10:57 999 mls/hr .BOLUS ONE Administration Departure - Departure Time of Disposition: 11:10 Disposition: DC/Tfer to Acute Hospital 02 Condition: Critical Clinical Impression: Altered mental state Qualifiers: Altered mental status type: unspecified Qualified Code(s): R41.82 - Altered mental status, unspecified Sepsis Qualifiers: Sepsis type: sepsis due to unspecified organism Sepsis acute organ dysfunction status: unspecified Qualified Code(s): A41.9 - Sepsis, unspecified organism Hydrocephalus Qualifiers: Hydrocephalus type: unspecified Qualified Code(s): G91.9 - Hydrocephalus, unspecified - Discharge Information *PRESCRIPTION DRUG MONITORING PROGRAM REVIEWED*: Not Applicable *COPY OF PRESCRIPTION DRUG MONITORING REPORT IN PATIENT [place]: Not Applicable Forms: Interfacility Transfer EMTALA Care Plan Goals: Discussed the patient's history, examination, lab, CT, x-ray and treatments with Dr. Chapin ([facility], ED). Dr. Chapin accepted the patient for continued evaluation and further management as an inpatient at [facility] in [place]. The patient will be transported by [facility]. Sepsis Event Note (ED) - Focused Exam Vital Signs: Vital Signs Temp Temp Pulse Resp BP 06/07/20 10:30 38.5 C H 06/07/20 10:00 38.5 C H 124 H 32 H 197/101 H - My Orders Last 24 Hours: My Active Orders 06/07/20 09:33 EKG Documentation Completion [RC] STAT 06/07/20 09:52 Blood Glucose Check, Bedside [RC] ONETIME 06/07/20 09:53 CULTURE BLOOD [BC] Stat 06/07/20 09:57 CULTURE URINE [RM] Stat 06/07/20 10:56 Piperacillin/Tazobactam [Zosyn] 3.375 gm Sodium Chloride 0.9% [Normal Saline] 100 ml IV ONETIME Vancomycin 1 gm Sodium Chloride 0.9% [Normal Saline (AdvBag)] 250 ml IV ONETIME - Assessment/Plan Last 24 Hours: My Active Orders 06/07/20 09:33 EKG Documentation Completion [RC] STAT 06/07/20 09:52 Blood Glucose Check, Bedside [RC] ONETIME 06/07/20 09:53 CULTURE BLOOD [BC] Stat 06/07/20 09:57 CULTURE URINE [RM] Stat 06/07/20 10:56 Piperacillin/Tazobactam [Zosyn] 3.375 gm Sodium Chloride 0.9% [Normal Saline] 100 ml IV ONETIME Vancomycin 1 gm Sodium Chloride 0.9% [Normal Saline (AdvBag)] 250 ml IV ONETIME
[2020-06-07 10:27] LABS: ACETAMINOPHEN 0 ug/mL (10-30 (Therapeutic))
[2020-06-07] MEDS ORDERED: Acetaminophen 650 MG Supp RECTAL STA (10:36)
--- NOTE | 2020-06-07 10:45 | CR ---
PROCEDURE INFORMATION: Exam: XR Chest, 1 View Exam date and time: 06/07/2020 10:29 AM Age: 50 years old Clinical indication: Altered mentation TECHNIQUE: Imaging protocol: XR of the chest Views: 1 view. COMPARISON: No relevant prior studies available. FINDINGS: Lungs: No pneumonia or pulmonary edema. Pleural space: No pleural effusion or pneumothorax. Heart/Mediastinum: The cardiac silhouette is not enlarged. The mediastinal contours are normal. Bones/joints: No acute osseous abnormality. IMPRESSION: No acute abnormality.
[2020-06-07 10:53] LABS: CORONAVIRUS COVID-19 NAA NEGATIVE (NEGATIVE)
[2020-06-07] MEDS ORDERED: Piperacillin/Tazobactam 3.375 GM in Sodium Chloride 0.9% 100 ML IV ONE (10:56)
[2020-06-07 10:59] VITALS: BP 197/101; PULSE 124
--- NOTE | 2020-06-07 11:35 | CR ---
PROCEDURE INFORMATION: Exam: XR Chest, 1 View Exam date and time: 06/07/2020 11:27 AM Age: 50 years old Clinical indication: Device placement; Ett placement (vent status); Additional info: Confirm intubation TECHNIQUE: Imaging protocol: XR of the chest Views: 1 view. COMPARISON: CR Chest 1V Frontal 06/07/2020 10:29 AM FINDINGS: Tubes, catheters and devices: There is now an endotracheal tube present with the tip approximately 2.7 cm above the expected location of the carmina. Lungs: No pneumonia or pulmonary edema. Pleural space: No pleural effusion or pneumothorax. Heart/Mediastinum: The cardiac silhouette is not enlarged. The mediastinal contours are normal. Bones/joints: There are multilevel bridging osteophytes in the spine. IMPRESSION: Endotracheal tube tip approximately 2.7 cm above the carmina.
== END 2020-06-07 12:00 ==
LOC: DL.ED 09:30
DX: A41.9 Sepsis, unspecified organism (principal); G91.9 Hydrocephalus, unspecified; R41.82 Altered mental status, unspecified; I10 Essential (primary) hypertension; Z20.822 Contact with and (suspected) exposure to COVID-19; Z88.5 Allergy status to narcotic agent; Z88.2 Allergy status to sulfonamides; Z79.899 Other long term (current) drug therapy
CPT/HCPCS: 0240U; 31500; 36415; 43752; 70450; 71045; 80053; 80143; 80179; 80305; 80307; 81001; 82962; 83605; 83735; 84484; 85025; 87040; 87086; 87088; 87186; 93005; 96365; 96367; 99285; A9270; J2543; J3370; J7030; J7050

== ENCOUNTER 2021-03-09 15:10 | Emergency (ER) | payer MEDICAID ==
--- NOTE | 2021-03-09 15:12 | CT ---
PROCEDURE INFORMATION: Exam: CT Head Without Contrast Exam date and time: 03/09/2021 2:49 PM Age: 51 years old Clinical indication: Other: Stroke protocol; Fall today TECHNIQUE: Imaging protocol: Computed tomography of the head without contrast. Radiation optimization: All CT scans at this facility use at least one of these dose optimization techniques: automated exposure control; mA and/or kV adjustment per patient size (includes targeted exams where dose is matched to clinical indication); or iterative reconstruction. COMPARISON: CT Head wo Cont 06/07/2020 9:43 AM FINDINGS: Brain: No hemorrhage. No territorial infarct. No mass effect. No midline shift. Stable periventricular hypodensity may represent chronic ischemia or transependymal CSF. Cerebral ventricles: Stable lateral, 3rd and 4th ventricular enlargement. Stable prominent aqueduct of Sylv[place]. Paranasal sinuses: Bilateral maxillary and ethmoid moderate air-fluid levels with mucosal thickening. Mastoid air cells: Visualized right mastoid air cells are well aerated. Stable left inferior mastoid effusion. Bones/joints: Unremarkable. No acute fracture. Soft tissues: Unremarkable. IMPRESSION: 1. Stable communicating hydrocephalus. No acute intracranial hemorrhage. 2. Acute and chronic bilateral maxillary sinusitis. Chronic bilateral ethmoid sinusitis. Aspects ([place] Stroke Program Early CT score ) is 10.
[2021-03-09 15:15] VITALS: BP 148/98; PULSE 85
--- NOTE | 2021-03-09 15:26 | EDM.PDOC ---
ED HPI GENERAL MEDICAL PROBLEM - General Chief Complaint: Neurological Problem Stated Complaint: AMBULANCE Time Seen by Provider: 03/09/21 15:14 Source of Information: Reports: Patient, EMS, RN, RN Notes Reviewed History Limitations: Reports: Altered Mental Status - History of Present Illness INITIAL COMMENTS - FREE TEXT/NARRATIVE: Bar is a 51 y/o male who presents to the ED via [facility] with complaints of altered mental status. Per EMS, the patient's noted the patient was unable to state his name/birthday and did not recognize her, therefore she became concerned he was having a stroke. She told EMS the patient has a history of "fluid in his brain" for which he was hospitalized at [facility] for a month; she denied history of a stroke. Upon arrival to this facility the patient is alert and oriented to time and place, he is disoriented to self. He states he may have fallen, but he is unsure of the events surrounding the fall including date or injuries sustained. He notes pain to his posterior neck, denies pain to head, chest, back, abdomen, or extremities. He has taken no medications for his symptoms. The patient denies tobacco, alcohol, or recreational drug use. 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 - Related Data Allergies Allergy/AdvReac Type Severity Reaction Status Date / Time codeine Allergy Rash Verified 02/22/20 00:49 cyclobenzaprine Allergy Rash Verified 02/22/20 00:49 Home Meds: Home Meds lisinopriL [Lisinopril] 10 mg PO DAILY 01/16/20 [History] Past Medical History HEENT History: Reports: None Cardiovascular History: Reports: Hypertension Respiratory History: Reports: None Genitourinary History: Reports: None Musculoskeletal History: Reports: Back Pain, Chronic Neurological History: Reports: None Psychiatric History: Reports: None Endocrine/Metabolic History: Reports: None Hematologic History: Reports: None Immunologic History: Reports: None Oncologic (Cancer) History: Reports: None Dermatologic History: Reports: None - Infectious Disease History Infectious Disease History: Reports: None - Past Surgical History Head Surgeries/Procedures: Reports: None GI Surgical History: Reports: Cholecystectomy Neurological Surgical History: Reports: Discectomy Other Neurological Surgeries/Procedures: L4-L5 Musculoskeletal Surgical History: Reports: Shoulder Surgery, Other (See Below) Other Musculoskeletal Surgeries/Procedures:: l4-l5. States he has "rods and pins in back from ruptured disc" Social & Family History - Family History Family Medical History: No Pertinent Family History - Tobacco Use Tobacco Use Status *Q: Unknown Ever Used Tobacco - Caffeine Use Caffeine Use: Reports: Soda - Recreational Drug Use Recreational Drug Use: No - Living Situation & Occupation Living situation: Reports: with Family ED ROS GENERAL - Review of Systems Review Of Systems: Comprehensive ROS is negative, except as noted in HPI. - Physical Exam Exam: See Below Exam Limited By: Altered Mental Status General Appearance: Alert, No Apparent Distress Eye Exam: Bilateral Eye: EOMI, Normal Inspection, PERRL (3mm) Ears: Normal External Exam, Normal Canal, Hearing Grossly Normal, Normal TMs Nose: Normal Inspection, Normal Mucosa, No Blood Throat/Mouth: Normal Inspection, Normal Oropharynx, Normal Voice, No Airway Compromise Head Exam: Atraumatic, Normocephalic Neck: Normal Inspection, Full Range of Motion, Other (C-collar in place; C-spine cleared via CT scan with c-collar removed at 1620) Respiratory/Chest: No Respiratory Distress, Lungs Clear, Chest Non-Tender. No: Crackles, Rales, Rhonchi, Wheezing, Stridor Cardiovascular: Normal Peripheral Pulses, Regular Rate, Rhythm, No Gallop, No Murmur, No Rub GI/Abdominal: Normal Bowel Sounds, Soft, Non-Tender, No Distention, No Abnormal Bruit, No Mass, Pelvis Stable. No: Guarding, Rigid, Rebound (Male) Exam: Deferred Rectal (Males) Exam: Deferred Neuro Exam (Abbreviated): Alert, Oriented (To place and time), Normal Cognition, No Motor/Sensory Deficits, Disoriented (To self), Slow to Respond, Memory Loss Recent Events. No: Memory Loss Remote Events Back Exam: Normal Inspection, Full Range of Motion Extremities: Normal Inspection, Normal Range of Motion, Normal Capillary Refill Psychiatric: Normal Affect, Normal Mood Skin Exam: Warm, Dry, Intact, Normal Color, No Rash. No: Cyanosis, Jaundice, Mottled, Pallor #1 Interpretation EKG Date: 03/09/21 Time: 15:06 Rhythm: NSR Rate (Beats/Min): [address] [place] [address]: Normal P-Wave: Present QRS: Normal ST-T: Normal QT: Normal [place]/PQ Interval: 0.136 Comparison: Change From Previous EKG (06/07/20) EKG Interpretation Comments: NSR with PVC; No evidence of acute myocardial ischemia Course - Vital Signs Last Recorded V/S: Last Vital Signs Temp 98.4 F 03/09/21 15:14 Pulse 85 03/09/21 15:14 Resp 18 03/09/21 15:14 BP 148/98 H 03/09/21 15:14 Pulse Ox 97 03/09/21 15:14 - Orders/Labs/Meds Orders: Active Orders 24 hr Category Date Time Status CULTURE BLOOD [BC] Stat Lab 03/09/21 15:24 Received CULTURE URINE [RM] Stat Lab 03/09/21 15:39 Received Blood Culture x2 Reflex Set [OM.PC] Stat Oth 03/09/21 14:57 Ordered Labs: Laboratory Tests 03/09/21 03/09/21 03/09/21 Range/Units 15:13 15:24 15:24 WBC 6.7 (5.0-10.0) 10^3/uL RBC 4.52 L (4.6-6.2) 10^6/uL Hgb 13.1 L (14.0-18.0) g/dL Hct 40.1 (40.0-54.0) % MCV 88.7 D (80-100) fL MCH 29.0 (27.0-34.0) pg MCHC 32.7 L (33.0-35.0) g/dL Plt Count 288 D (150-450) 10^3/uL Neut % (Auto) 53.6 (42.2-75.2) % Lymph % (Auto) 30.7 (20.5-50.1) % [place] % (Auto) 12.8 H (2-8) % Eos % (Auto) 2.6 (1.0-3.0) % Baso % (Auto) 0.3 (0.0-1.0) % PT 9.2 (9.0-12.0) SEC INR 0.9 (0.9-1.2) APTT 26.0 (22.0-34.0) SEC Sodium (136-145) mmol/L Potassium (3.5-5.1) mmol/L Chloride (98-107) mmol/L Carbon Dioxide (21-32) mmol/L Anion Gap (7-13) mEq/L BUN (7-18) mg/dL Creatinine (0.70-1.30) mg/dL Est Cr Clr Drug Dosing Estimated GFR (MDRD) BUN/Creatinine Ratio (No establ ref range) Glucose (70-99) mg/dL Lactic Acid (0.4-2.0) mmol/L Calcium (8.5-10.1) mg/dL Magnesium (1.8-2.4) mg/dL Total Bilirubin (0.2-1.0) mg/dL AST (15-37) U/L ALT (16-63) U/L Alkaline Phosphatase (46-116) U/L Ammonia (11-32) umol/L Troponin I High Sens (<=76) pg/mL C-Reactive Protein (0.0-0.9) mg/dL B-Natriuretic Peptide (0-100) pg/ml Total Protein (6.4-8.2) g/dL Albumin (3.4-5.0) g/dL Globulin Albumin/Globulin Ratio Urine Color (YELLOW) Urine Appearance (CLEAR) Urine pH (5.0-9.0) Ur Specific [place] (1.005-1.030) Urine Protein (NEGATIVE) Urine Glucose (UA) (NEGATIVE) Urine Ketones (NEGATIVE) Urine Occult Blood (NEGATIVE) Urine Nitrite (NEGATIVE) Urine Bilirubin (NEGATIVE) Urine Urobilinogen (0.2-1.0) mg/dL Ur Leukocyte Esterase (NEGATIVE) Urine RBC (0-5) /HPF Urine WBC (0-5/HPF) /HPF Ur Epithelial Cells (NOT SEEN) /HPF Urine Bacteria (0-FEW/HPF) /HPF Urine Opiates Screen (NEGATIVE) Ur Oxycodone Screen (NEGATIVE) Urine Methadone Screen (NEGATIVE) Ur Barbiturates Screen (NEGATIVE) U Tricyclic Antidepress (NEGATIVE) Ur Phencyclidine Scrn (NEGATIVE) Ur Amphetamine Screen (NEGATIVE) U Methamphetamines Scrn (NEGATIVE) Urine MDMA Screen (NEGATIVE) U Benzodiazepines Scrn (NEGATIVE) Urine Cocaine Screen (NEGATIVE) U Marijuana (THC) Screen (NEGATIVE) Ethyl Alcohol (0) mg/dL SARS-CoV-2 RNA (JIMMY) Negative (NEGATIVE) 03/09/21 03/09/21 03/09/21 Range/Units 15:24 15:24 15:24 WBC (5.0-10.0) 10^3/uL RBC (4.6-6.2) 10^6/uL Hgb (14.0-18.0) g/dL Hct (40.0-54.0) % MCV (80-100) fL MCH (27.0-34.0) pg MCHC (33.0-35.0) g/dL Plt Count (150-450) 10^3/uL Neut % (Auto) (42.2-75.2) % Lymph % (Auto) (20.5-50.1) % Williamson % (Auto) (2-8) % Eos % (Auto) (1.0-3.0) % Baso % (Auto) (0.0-1.0) % PT (9.0-12.0) SEC INR (0.9-1.2) APTT (22.0-34.0) SEC Sodium 142 (136-145) mmol/L Potassium 4.1 (3.5-5.1) mmol/L Chloride 104 (98-107) mmol/L Carbon Dioxide 28 (21-32) mmol/L Anion Gap 14.1 H (7-13) mEq/L BUN 7 (7-18) mg/dL Creatinine 0.95 (0.70-1.30) mg/dL Est Cr Clr Drug Dosing TNP Estimated GFR (MDRD) > 60 BUN/Creatinine Ratio 7.4 (No establ ref range) Glucose 100 H (70-99) mg/dL Lactic Acid 1.1 (0.4-2.0) mmol/L Calcium 9.1 (8.5-10.1) mg/dL Magnesium 2.2 (1.8-2.4) mg/dL Total Bilirubin 0.2 (0.2-1.0) mg/dL AST 20 (15-37) U/L ALT 36 (16-63) U/L Alkaline Phosphatase 126 H (46-116) U/L Ammonia 29 (11-32) umol/L Troponin I High Sens 5 (<=76) pg/mL C-Reactive Protein 1.4 H (0.0-0.9) mg/dL B-Natriuretic Peptide 6 (0-100) pg/ml Total Protein 8.0 (6.4-8.2) g/dL Albumin 3.2 L (3.4-5.0) g/dL Globulin 4.8 Albumin/Globulin Ratio 0.67 Urine Color (YELLOW) Urine Appearance (CLEAR) Urine pH (5.0-9.0) Ur Specific [place] (1.005-1.030) Urine Protein (NEGATIVE) Urine Glucose (UA) (NEGATIVE) Urine Ketones (NEGATIVE) Urine Occult Blood (NEGATIVE) Urine Nitrite (NEGATIVE) Urine Bilirubin (NEGATIVE) Urine Urobilinogen (0.2-1.0) mg/dL Ur Leukocyte Esterase (NEGATIVE) Urine RBC (0-5) /HPF Urine WBC (0-5/HPF) /HPF Ur Epithelial Cells (NOT SEEN) /HPF Urine Bacteria (0-FEW/HPF) /HPF Urine Opiates Screen (NEGATIVE) Ur Oxycodone Screen (NEGATIVE) Urine Methadone Screen (NEGATIVE) Ur Barbiturates Screen (NEGATIVE) U Tricyclic Antidepress (NEGATIVE) Ur Phencyclidine Scrn (NEGATIVE) Ur Amphetamine Screen (NEGATIVE) U Methamphetamines Scrn (NEGATIVE) Urine MDMA Screen (NEGATIVE) U Benzodiazepines Scrn (NEGATIVE) Urine Cocaine Screen (NEGATIVE) U Marijuana (THC) Screen (NEGATIVE) Ethyl Alcohol < 3 (0) mg/dL SARS-CoV-2 RNA (JIMMY) (NEGATIVE) 03/09/21 03/09/21 Range/Units 15:39 15:39 WBC (5.0-10.0) 10^3/uL RBC (4.6-6.2) 10^6/uL Hgb (14.0-18.0) g/dL Hct (40.0-54.0) % MCV (80-100) fL MCH (27.0-34.0) pg MCHC (33.0-35.0) g/dL Plt Count (150-450) 10^3/uL Neut % (Auto) (42.2-75.2) % Lymph % (Auto) (20.5-50.1) % Williamson % (Auto) (2-8) % Eos % (Auto) (1.0-3.0) % Baso % (Auto) (0.0-1.0) % PT (9.0-12.0) SEC INR (0.9-1.2) APTT (22.0-34.0) SEC Sodium (136-145) mmol/L Potassium (3.5-5.1) mmol/L Chloride (98-107) mmol/L Carbon Dioxide (21-32) mmol/L Anion Gap (7-13) mEq/L BUN (7-18) mg/dL Creatinine (0.70-1.30) mg/dL Est Cr Clr Drug Dosing Estimated GFR (MDRD) BUN/Creatinine Ratio (No establ ref range) Glucose (70-99) mg/dL Lactic Acid (0.4-2.0) mmol/L Calcium (8.5-10.1) mg/dL Magnesium (1.8-2.4) mg/dL Total Bilirubin (0.2-1.0) mg/dL AST (15-37) U/L ALT (16-63) U/L Alkaline Phosphatase (46-116) U/L Ammonia (11-32) umol/L Troponin I High Sens (<=76) pg/mL C-Reactive Protein (0.0-0.9) mg/dL B-Natriuretic Peptide (0-100) pg/ml Total Protein (6.4-8.2) g/dL Albumin (3.4-5.0) g/dL Globulin Albumin/Globulin Ratio Urine Color Yellow (YELLOW) Urine Appearance Clear (CLEAR) Urine pH 8.5 (5.0-9.0) Ur Specific [place] 1.020 (1.005-1.030) Urine Protein Negative (NEGATIVE) Urine Glucose (UA) Negative (NEGATIVE) Urine Ketones Negative (NEGATIVE) Urine Occult Blood Negative (NEGATIVE) Urine Nitrite Negative (NEGATIVE) Urine Bilirubin Negative (NEGATIVE) Urine Urobilinogen 0.2 (0.2-1.0) mg/dL Ur Leukocyte Esterase Trace H (NEGATIVE) Urine RBC 0-5 (0-5) /HPF Urine WBC 5-10 H (0-5/HPF) /HPF Ur Epithelial Cells Few (NOT SEEN) /HPF Urine Bacteria Many H (0-FEW/HPF) /HPF Urine Opiates Screen Negative (NEGATIVE) Ur Oxycodone Screen Negative (NEGATIVE) Urine Methadone Screen Negative (NEGATIVE) Ur Barbiturates Screen Negative (NEGATIVE) U Tricyclic Antidepress Negative (NEGATIVE) Ur Phencyclidine Scrn Negative (NEGATIVE) Ur Amphetamine Screen Negative (NEGATIVE) U Methamphetamines Scrn Positive H (NEGATIVE) Urine MDMA Screen Negative (NEGATIVE) U Benzodiazepines Scrn Negative (NEGATIVE) Urine Cocaine Screen Negative (NEGATIVE) U Marijuana (THC) Screen Positive H (NEGATIVE) Ethyl Alcohol (0) mg/dL SARS-CoV-2 RNA (JIMMY) (NEGATIVE) - Radiology Interpretation Free Text/Narrative:: [facility] [place] [facility] Call: [phone] assistance Online chat: [email or web address] Name: BAR SCHWARTZ Age: 51Years M Date: 03/09/2021 SSN: -- : [id number] Study: CT HEAD WO CONT Requesting Physician: Daphnie Lopez Images: [phone] Addl Studies: Provided Clinical History: Stroke protocol; Fall today Contrast: Without Contrast Medium: Contrast Amount: Contrast Method: Page 1 of 2 PROCEDURE INFORMATION: Exam: CT Head Without Contrast Exam date and time: 03/09/2021 2:49 PM Age: 51 years old Clinical indication: Other: Stroke protocol; Fall today TECHNIQUE: Imaging protocol: Computed tomography of the head without contrast. Radiation optimization: All CT scans at this facility use at least one of these dose optimization techniques: automated exposure control; mA and/or kV adjustment per patient size (includes targeted exams where dose is matched to clinical indication); or iterative reconstru ction. COMPARISON: CT Head wo Cont 06/07/2020 9:43 AM FINDINGS: Brain: No hemorrhage. No territorial infarct. No mass effect. No midline shift. Stable periventricular hypodensity may represent chronic ischemia or transependymal CSF. Cerebral ventricles: Stable lateral, 3rd and 4th ventricular enlargement. Stable prominent aqueduct of Sylv[place]. Paranasal sinuses: Bilateral maxillary and ethmoid moderate air-fluid levels with mucosal thickening. Mastoid air cells: Visualized right mastoid air cells are well aerated. Stable left inferior mastoid effusion. Bones/joints: Unremarkable. No acute fracture. Soft tissues: Unremarkable. IMPRESSION: 1. Stable communicating hydrocephalus. No acute intracranial hemorrhage. 2. Acute and chronic bilateral maxillary sinusitis. Chronic bilateral ethmoid sinusitis. Aspects ([place] Stroke Program Early CT score ) is 10. Thank you for allowing us to participate in the care of your patient. Dictated and Authenticated by: Rosa M Quinn MD 03/09/2021 3:11 PM Central Time ([place] & [place]) [facility] [place] [facility] Final Radiology Report Call: [phone] assistance Online chat: [email or web address] Name: BAR SCHWARTZ Age: 51Years M Date: 03/09/2021 SSN: -- : [id number] Study: CT CERVICAL SPINE WO CONT Requesting Physician: Daphnie Lopez Images: [id number] Addl Studies: Provided Clinical History: Stroke protocol; Fall today Contrast: Without Contrast Medium: Contrast Amount: Contrast Method: Page 1 of 2 PROCEDURE INFORMATION: Exam: CT Cervical Spine Without Contrast Exam date and time: 03/09/2021 2:49 PM Age: 51 years old Clinical indication: Other: Stroke protocol; Fall today TECHNIQUE: Imaging protocol: Computed tomography images of the cervical spine without contrast. Radiation optimization: All CT scans at this facility use at least one of these dose optimization techniques: automated exposure control; mA and/or kV adjustment per patient size (includes targeted exams where dose is matched to clinical indication); or iterative reconstruction. COMPARISON: MR Cervical Spine Comp wo Cont 10/27/2019 12:51 PM FINDINGS: Vertebrae: C5-C6 moderate disc height loss with anterior and posterior spondylosis. The odontoid is normal. The C1-C2 lateral masses are congruent. C2-C3: No severe spinal canal stenosis. No significant neural foraminal narrowing. C3-C4: No significant disc protrusion. No severe spinal canal stenosis. No significant neural foraminal narrowing. C4-C5: Left central protrusion. No severe spinal canal stenosis. No significant neural foraminal narrowing. C5-C6: Degenerative disc disease. Left lateral protrusion. Mild spinal canal stenosis. Left moderate neural foraminal narrowing. C6-C7: No significant disc protrusion. No severe spinal canal stenosis. No significant neural foraminal narrowing. C7-T1: No significant disc protrusion. No severe spinal canal stenosis. No significant neural foraminal narrowing. Soft tissues: Unremarkable. Lungs: Lung apices are normal. IMPRESSION: 1. No acute findings. 2. C5-C6 spondyloarthropathy. 3. C4-C5 left central disc protrusion. 4. C5-C6 left lateral disc protrusion. Left moderate neural foraminal narrowing. Thank you for allowing us to participate in the care of your patient. Dictated and Authenticated by: Rosa M Quinn MD 03/09/2021 3:42 PM Central Time ([place] & [place]) - Re-Assessments/Exams Free Text/Narrative Re-Assessment/Exam: 03/10/21 CT head and c-spine obtained. C-collar removed at 1620. Patient up in bed, refusing further evaluation and stating he would like to leave. Patient is alert and now fully oriented to place, time, situation, and self. He states he does not want to be in the hospital and is upset he was brought into the ED via EMS. Patient left AMA. 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
--- NOTE | 2021-03-09 15:42 | CT ---
PROCEDURE INFORMATION: Exam: CT Cervical Spine Without Contrast Exam date and time: 03/09/2021 2:49 PM Age: 51 years old Clinical indication: Other: Stroke protocol; Fall today TECHNIQUE: Imaging protocol: Computed tomography images of the cervical spine without contrast. Radiation optimization: All CT scans at this facility use at least one of these dose optimization techniques: automated exposure control; mA and/or kV adjustment per patient size (includes targeted exams where dose is matched to clinical indication); or iterative reconstruction. COMPARISON: MR Cervical Spine Comp wo Cont 10/27/2019 12:51 PM FINDINGS: Vertebrae: C5-C6 moderate disc height loss with anterior and posterior spondylosis. The odontoid is normal. The C1-C2 lateral masses are congruent. C2-C3: No severe spinal canal stenosis. No significant neural foraminal narrowing. C3-C4: No significant disc protrusion. No severe spinal canal stenosis. No significant neural foraminal narrowing. C4-C5: Left central protrusion. No severe spinal canal stenosis. No significant neural foraminal narrowing. C5-C6: Degenerative disc disease. Left lateral protrusion. Mild spinal canal stenosis. Left moderate neural foraminal narrowing. C6-C7: No significant disc protrusion. No severe spinal canal stenosis. No significant neural foraminal narrowing. C7-T1: No significant disc protrusion. No severe spinal canal stenosis. No significant neural foraminal narrowing. Soft tissues: Unremarkable. Lungs: Lung apices are normal. IMPRESSION: 1. No acute findings. 2. C5-C6 spondyloarthropathy. 3. C4-C5 left central disc protrusion. 4. C5-C6 left lateral disc protrusion. Left moderate neural foraminal narrowing.
[2021-03-09 15:58] LABS: ANION GAP 14.1 mEq/L (7-13); CHLORIDE,CL 104 mmol/L (98-107); SODIUM,NA 142 mmol/L (136-145)
[2021-03-09 15:59] LABS: AMPHETAMINES,URINE NEGATIVE (NEGATIVE); BARBITURATES,URINE NEGATIVE (NEGATIVE); BENZODIAZEPINE,URINE NEGATIVE (NEGATIVE); MDMA (ECSTASY), URINE NEGATIVE (NEGATIVE); METHADONE,URINE NEGATIVE (NEGATIVE); METHAMPHETAMINES,URINE POSITIVE (NEGATIVE); OPIATES,URINE NEGATIVE (NEGATIVE); OXYCODONE,URINE NEGATIVE (NEGATIVE); PHENCYCLIDINE,URINE NEGATIVE (NEGATIVE); TCA,URINE NEGATIVE (NEGATIVE)
== END 2021-03-09 16:39 | disposition left against medical advice (07) ==
LOC: DL.ED 15:10
DX: F15.121 Other stimulant abuse with intoxication delirium (principal); I10 Essential (primary) hypertension; Z88.5 Allergy status to narcotic agent; Z88.8 Allergy status to other drugs, medicaments and biological substances; Z79.899 Other long term (current) drug therapy; Z20.822 Contact with and (suspected) exposure to COVID-19; Z53.8 Procedure and treatment not carried out for other reasons
CPT/HCPCS: 36415; 70450; 72125; 80053; 80305-QW; 80307; 81001; 82140; 83605; 83735; 83880; 84484; 85025; 85610; 85730; 86140; 87040; 87086; 93005; 99285-25; U0002

== ENCOUNTER 2021-11-28 08:21 | Emergency (ER) | payer MEDICAID ==
[2021-11-28] MEDS ORDERED: Sodium Chloride 0.9% 10 ML Syringe FLUSH PRN (08:44)
[2021-11-28] MEDS ORDERED: HYDROmorphone 0.5 MG/0.5 ML Syringe IVPUSH ONE ×3 (08:46→11:53)
[2021-11-28] MEDS ORDERED: Ondansetron 4 MG/2 ML SDV IVPUSH ONE (08:46)
[2021-11-28 09:07] VITALS: BP 124/85; PULSE 104
[2021-11-28] MEDS ORDERED: Sodium Chloride 0.9% 1,000 ML IV ONE (09:16)
[2021-11-28 10:13] LABS: ANION GAP 13.5 mEq/L (7-13); CHLORIDE,CL 100 mmol/L (98-107); SODIUM,NA 137 mmol/L (136-145)
[2021-11-28 10:33] LABS: ESTIMATED GFR 96 mL/min (>=60)
[2021-11-28] MEDS ORDERED: HYDROmorphone 0.5 MG/0.5 ML Syringe ONE (11:55)
[2021-11-28] MEDS ORDERED: methylPREDNISolone Sodium Succinate 125 MG/2 ML SDV IVPUSH ONE (12:13)
== END 2021-11-28 12:50 | disposition home or self-care (01) ==
LOC: DL.ED 08:21
DX: U07.1 COVID-19 (principal); M54.40 Lumbago with sciatica, unspecified side; G54.4 Lumbosacral root disorders, not elsewhere classified; I10 Essential (primary) hypertension; Z88.5 Allergy status to narcotic agent; Z79.899 Other long term (current) drug therapy
CPT/HCPCS: 36415; 72131; 80053; 83735; 84145; 85025; 85651; 86140; 87040; 87635; 96374; 96375; 96376; 99284; J1170; J2405; J2930; J3490; J7030; U0002

== ENCOUNTER 2022-08-10 21:47 | Emergency (ER) | payer MEDICAID ==
[2022-08-10 21:59] VITALS: BP 147/78; PULSE 110
[2022-08-10] MEDS ORDERED: Cyclobenzaprine 10 MG Tab PO ONE (22:16)
[2022-08-10] MEDS ORDERED: Ketorolac 30 MG/ML SDV IM ONE (22:16)
== END 2022-08-10 22:38 | disposition home or self-care (01) ==
LOC: DL.ED 21:47
DX: M62.830 Muscle spasm of back (principal); I10 Essential (primary) hypertension; Z72.0 Tobacco use; Z79.899 Other long term (current) drug therapy; Z88.5 Allergy status to narcotic agent; Z88.8 Allergy status to other drugs, medicaments and biological substances
CPT/HCPCS: 96372; 99283; A9270-GY; J1885